=== PATIENT | male | born 1965 | race Caucasian/White ===

== ENCOUNTER 2016-05-15 10:38 | Emergency (ER) | payer OTHER ==
[2016-05-15] MEDS ORDERED: HYDROmorphone 1 MG/ML 1 ML SYRINGE IM STA (11:17)
--- NOTE | 2016-05-15 11:21 | ED ---
Back Pain [facility] - General Chief Complaint: Back Pain/Injury Stated Complaint: lower back pain Time Seen by Provider: 05/15/16 10:53 Source: patient, RN notes reviewed Limitations: no limitations - History of Present Illness Initial Comments: Patient is a 50-year-old male presents emergency room for evaluation of low back pain. Patient states his current history of chronic low back pain. Patient states he takes baclofen, morphine, Percocet, Mobic for his chronic back pain. Patient states he also sees Dr. Chan for injections. Patient states on Saturday he was lifting up a tool box and had increasing left-sided low back pain. Patient states the pain is not subsiding. Patient states he called Dr. Leahy's office today and was unable to get in. Patient states his pain medications are not helping his pain. Patient denies any numbness or tingling going down his extremities. Patient denies fecal or urinary incontinence. Patient denies saddle anesthesia. Patient states having 10 out of 10 pain that lasted subside. Patient denies any recent fall or trauma to his back. - Related Data Home Medications Medication Instructions Recorded Confirmed Amitriptyline HCl [Elavil] 25 mg PO BID 05/16/15 05/15/16 Baclofen 10 mg PO BID 05/16/15 05/15/16 Diazepam [Valium] 5 mg PO BID PRN 05/16/15 05/15/16 Gabapentin 800 mg PO TID 05/16/15 05/15/16 Meloxicam [Mobic] 7.5 mg PO DAILY 05/16/15 05/15/16 Morphine Sulfate [Morphine Sulfate 30 mg PO BID 05/16/15 05/15/16 ER] OXcarbazepine [Trileptal] 1,200 mg PO BID 05/16/15 05/15/16 PARoxetine HCL [Paxil] 40 mg PO DAILY 05/16/15 05/15/16 Ranitidine HCl 150 mg PO BID PRN 05/16/15 05/15/16 oxyCODONE-APAP 10-325MG [Percocet 1 tab PO BID 05/16/15 05/15/16 10-325 mg] levETIRAcetam [Keppra] 500 mg PO BID 05/15/16 05/15/16 Allergies Allergy/AdvReac Type Severity Reaction Status Date / Time coconut oil Allergy Dyspnea, Verified 05/15/16 10:44 SWELLING OF THROAT latex Allergy Rash/Hives Verified 05/15/16 10:44 Penicillins Allergy "TOLD BY Verified 05/15/16 10:44 DR LINDSEY TO TAKE Review of Systems ROS Statement: Those systems with pertinent positive or pertinent negative responses have been documented in the HPI. ROS Other: All systems not noted in ROS Statement are negative. Past Medical History Past Medical History: Seizure Disorder Additional Past Medical History / Comment(s): BACK PAIN History of Any Multi-Drug Resistant Organisms: None Reported Additional Past Surgical History / Comment(s): FOOT SURGERY, AND RIGHT ARTHROSCOPIC SURGERY Past Psychological History: Anxiety, Depression Smoking Status: Current every day smoker Past Alcohol Use History: None Reported Past Drug Use History: Marijuana General Exam Limitations: no limitations General appearance: alert Head exam: Present: atraumatic, normocephalic, normal inspection Eye exam: Present: normal appearance ENT exam: Present: normal exam Neck exam: Present: normal inspection Respiratory exam: Present: normal lung sounds bilaterally. Absent: respiratory distress Cardiovascular Exam: Present: regular rate, normal rhythm, normal heart sounds Back exam: Present: paraspinal tenderness (left lumbosacral tenderness) Neurological exam: Present: alert, oriented X3, CN II-XII intact, normal gait Psychiatric exam: Present: normal affect, normal mood Skin exam: Present: warm, dry, intact, normal color. Absent: rash Course Vital Signs 05/15/16 05/15/16 05/15/16 10:46 11:53 12:30 Temperature 97.8 F 98 F Pulse Rate 90 64 75 Respiratory 16 18 18 Rate Blood Pressure 133/83 109/57 109/58 O2 Sat by Pulse 97 100 95 Oximetry Medical Decision Making - Medical Decision Making Patient is a 50-year-old male presents emergency room for evaluation of acute on Chronic low back pain. Patient has no neural deficits. Patient given pain medication and advised follow-up with his neurologist. Patient states he understands everything that was discussed with him. Return parameters discussed. Case discussed with Dr. Cedeno. Disposition Clinical Impression: Acute exacerbation of chronic low back pain Disposition: HOME SELF-CARE Condition: Good Instructions: Chronic Back Pain (ED) Additional Instructions: Warm moist heat. Continue at home medications as needed. Please follow-up with primary care provider or scene painter for reevaluation in 24- 48 hours. If any new symptom arises, or symptoms worsen, return to ER as soon as possible. Referrals: Live Knutson MD [Primary Care Provider] - 1-2 days Time of Disposition: 11:50
[2016-05-15] MEDS ORDERED: HYDROmorphone 2 MG/ML 1 ML SYRINGE IM STA (11:52)
[2016-05-15 11:54] VITALS: RESP 18
[2016-05-15 12:32] VITALS: BP 109/58; PULSE 75; TEMP 98
== END 2016-05-15 12:32 | disposition home or self-care (01) ==
LOC: EC 10:38
DX: M54.5 Low back pain (principal); G89.29 Other chronic pain; X50.0XXA Overexertion from strenuous movement or load, initial encounter; G40.909 Epilepsy, unspecified, not intractable, without status epilepticus; F32.9 Major depressive disorder, single episode, unspecified; F41.9 Anxiety disorder, unspecified; F17.200 Nicotine dependence, unspecified, uncomplicated; Z79.1 Long term (current) use of non-steroidal anti-inflammatories (NSAID); Z79.899 Other long term (current) drug therapy; Z88.0 Allergy status to penicillin; Z91.040 Latex allergy status
CPT/HCPCS: 99283; 96372 ×2; J1170 ×2

== ENCOUNTER → 2017-07-12 | Outpatient (CLI) | payer OTHER ==
--- NOTE | 2017-07-13 08:37 | MR ---
EXAMINATION TYPE: MR lumbar spine wo con DATE OF EXAM: 07/12/2017 COMPARISON: Prior MRI lumbar spine August 27, 2015 HISTORY: Low back pain per order. Pain for over 40 years going into bilateral buttocks per patient. TECHNIQUE: Multiplanar, multisequence imaging of the lumbar spine is performed without IV contrast. FINDINGS: Sagittal images of the lumbar spine show vertebral body heights to appear stable and satisf actory. There is straightened alignment redemonstrated. There is multilevel disc desiccation with may rly advanced multilevel disc space narrowing redemonstrated. There are multilevel small posterior dis c herniations on sagittal images most prominent at L1-L2 level redemonstrated. The conus medullaris remains stable in position ending at roughly mid L2 level. No suspicious signal is seen. There is red emonstration of extensive heterogeneous endplate changes predominantly Modic type II changes with inc reased T1 and T2 signal. There is redemonstration of fairly moderate multilevel anterior spurring. Axial images at T12-L1 level redemonstrate mild facet degenerative changes bilaterally. Spinal canal is preserved. Bilateral neural foramina are patent. No significant change from prior study is seen. Axial images at L1-L2 level redemonstrate moderate broad disc bulge and mild facet degenerative muñiz es bilaterally. There is mild effacement of the anterior thecal sac. Bilateral neural foramina are pa tent. No significant change from prior study is seen. Axial images at L2-L3 level redemonstrate moderate broad disc bulge mildly effacing anterior thecal s ac, bilateral neural foramina are patent. No significant change from prior study is seen. Axial images at L3-L4 level show mild facet degenerative changes bilaterally and mild to moderate bro ad disc bulge mildly effacing anterior thecal sac. There is persistent mild bilateral neural foramina l narrowing. No significant change from prior study is identified. Axial images at L4-L5 level show mild to moderate facet degenerative changes and ligamentum flavum hy pertrophy with some effacement the posterior lateral thecal sac. There is moderate to severe broad di sc bulge effacing anterior thecal sac. There is moderate right and mild left-sided neural foraminal n arrowing at this level redemonstrated. No significant change from prior. Axial images at L5-S1 level redemonstrate mild to moderate facet degenerative changes bilaterally. Th ere is moderate broad disc bulge with central disc protrusion component redemonstrated. There is mild to moderate right greater than left bilateral neural foraminal narrowing again seen. No suspicious retroperitoneal findings are seen. IMPRESSION: Straightening of lumbar spine with multilevel degenerative changes redemonstrated quite p ronounced for patient's age but no significant change or progression from most recent prior MRI.
== END ==
LOC: RADMRIMAIN 15:56
PROVIDERS: ATTEND Psychiatry & Neurology Neurology
DX: M47.816 Spondylosis without myelopathy or radiculopathy, lumbar region (principal); Z88.0 Allergy status to penicillin; Z88.8 Allergy status to other drugs, medicaments and biological substances
CPT/HCPCS: 72148

== ENCOUNTER 2017-08-08 00:34 | Inpatient (IN) | payer OTHER ==
[2017-08-08] MEDS ORDERED: DIAZEPAM 5 MG/ML 2 ML INJ IVP STA (00:39)
[2017-08-08] MEDS ORDERED: ACETAMINOPHEN IV (For NPO) 1,000 MG in EMPTY BAG 1 BAG IVPB STA (00:46)
[2017-08-08] MEDS ORDERED: LORazepam 2 MG/ML INJ IV STA (00:46)
[2017-08-08] MEDS ORDERED: SODIUM CHLORIDE 0.9% 1,000 ML IV STA ×3 (00:50→01:59)
[2017-08-08] MEDS ORDERED: MORPHINE SULFATE 4MG/4ML SYRG IVP PRN (00:50)
[2017-08-08] MEDS ORDERED: SODIUM CHLORIDE 0.9% 500 ML IV STA ×2 (00:50→01:59)
[2017-08-08] MEDS ORDERED: MORPHINE SULFATE 4MG/4ML SYRG IVP STA (00:50)
[2017-08-08] MEDS ORDERED: ONDANSETRON 4 MG/2 ML VIAL IVP STA (01:05)
--- NOTE | 2017-08-08 01:08 | ED ---
General Adult HPI - General Chief complaint: Weakness Stated complaint: Neuro Deficit Time Seen by Provider: 08/08/17 00:35 Source: patient, EMS, RN notes reviewed, old records reviewed Mode of arrival: EMS Limitations: no limitations - History of Present Illness Initial comments: This is a 51-year-old male to the ER for evaluation today. Patient's brought in for evaluation regarding severe muscle spasm, inability to move different parts of his body at times.. Patient states he is very significant tightness in his arms, severe fever and sweating. Weakness. Cough and congestion. Patient states he takes multiple pain medications, - Related Data Home Medications Medication Instructions Recorded Confirmed Amitriptyline HCl [Elavil] 25 mg PO BID 05/16/15 05/15/16 Baclofen 10 mg PO BID 05/16/15 05/15/16 Diazepam [Valium] 5 mg PO BID PRN 05/16/15 05/15/16 Gabapentin 800 mg PO TID 05/16/15 05/15/16 Meloxicam [Mobic] 7.5 mg PO DAILY 05/16/15 05/15/16 Morphine Sulfate [Morphine Sulfate 30 mg PO BID 05/16/15 05/15/16 ER] OXcarbazepine [Trileptal] 1,200 mg PO BID 05/16/15 05/15/16 PARoxetine HCL [Paxil] 40 mg PO DAILY 05/16/15 05/15/16 Ranitidine HCl 150 mg PO BID PRN 05/16/15 05/15/16 oxyCODONE-APAP 10-325MG [Percocet 1 tab PO BID 05/16/15 05/15/16 10-325 mg] levETIRAcetam [Keppra] 500 mg PO BID 05/15/16 05/15/16 Allergies Allergy/AdvReac Type Severity Reaction Status Date / Time coconut oil Allergy Dyspnea, Verified 08/08/17 00:36 SWELLING OF THROAT latex Allergy Rash/Hives Verified 08/08/17 00:36 Penicillins Allergy "TOLD BY Verified 08/08/17 00:36 DR LINDSEY TO TAKE Review of Systems ROS Statement: Those systems with pertinent positive or pertinent negative responses have been documented in the HPI. ROS Other: All systems not noted in ROS Statement are negative. Past Medical History Past Medical History: Seizure Disorder Additional Past Medical History / Comment(s): BACK PAIN History of Any Multi-Drug Resistant Organisms: None Reported Additional Past Surgical History / Comment(s): FOOT SURGERY, AND RIGHT ARTHROSCOPIC SURGERY Past Psychological History: Anxiety, Depression Smoking Status: Current every day smoker Past Alcohol Use History: None Reported Past Drug Use History: Marijuana General Exam Limitations: altered mental status General appearance: alert, anxious, in distress Head exam: Present: atraumatic, normocephalic, normal inspection Eye exam: Present: normal appearance, PERRL, EOMI. Absent: scleral icterus, conjunctival injection, periorbital swelling ENT exam: Present: normal exam, mucous membranes moist Neck exam: Present: normal inspection. Absent: tenderness, meningismus, lymphadenopathy Respiratory exam: Present: normal lung sounds bilaterally. Absent: respiratory distress, wheezes, rales, rhonchi, stridor Cardiovascular Exam: Present: regular rate, bradycardia, normal heart sounds. Absent: systolic murmur, diastolic murmur, rubs, gallop, clicks GI/Abdominal exam: Present: soft, normal bowel sounds. Absent: distended, tenderness, guarding, rebound, rigid Extremities exam: Present: normal inspection, full ROM, normal capillary refill. Absent: tenderness, pedal edema, joint swelling, calf tenderness Back exam: Present: normal inspection Neurological exam: Present: alert, oriented X3, CN II-XII intact Psychiatric exam: Present: normal affect, normal mood Skin exam: Present: warm, dry, intact, normal color. Absent: rash Course Vital Signs 08/08/17 08/08/17 08/08/17 00:36 01:16 01:52 Temperature 103.9 F H 102.7 F H 100.2 F H Pulse Rate 150 H 125 H 119 H Pulse Rate [ Right] Respiratory 20 20 16 Rate Blood Pressure 160/90 141/74 112/63 O2 Sat by Pulse 95 95 96 Oximetry 08/08/17 08/08/17 02:56 03:28 Temperature 99.3 F Pulse Rate 109 H Pulse Rate [ 103 H Right] Respiratory 14 16 Rate Blood Pressure 123/73 O2 Sat by Pulse 96 Oximetry - Reevaluation(s) Reevaluation #1: 08/08/17 03:47 Patient is awake alert sitting up in bed talking EKG Findings - EKG Comments: EKG Findings:: EKG shows sinus tachycardia rate 146, [place] 100, QRS 76, QTc 523 Medical Decision Making - Medical Decision Making Patient return to baseline mental status, has active adequate fever control, heart rate is much improved at this time, patient will be started on broad- spectrum antibiotics, x-ray CT brain negative fluids negative urine is negative for significant infection. Patient has blood cultures drawn. We'll continue to monitor for hemodynamic status - Lab Data Result diagrams: 08/08/17 00:57 08/08/17 00:57 Lab Results 08/08/17 08/08/17 08/08/17 Range/Units 00:57 00:57 00:57 WBC 25.2 H* (3.8-10.6) k/uL RBC 5.60 (4.30-5.90) m/uL Hgb 17.1 (13.0-17.5) gm/dL Hct 48.8 (39.0-53.0) % MCV 87.1 (80.0-100.0) fL MCH 30.6 (25.0-35.0) pg MCHC 35.1 (31.0-37.0) g/dL RDW 12.9 (11.5-15.5) % Plt Count 394 (150-450) k/uL Neutrophils % 88 % Lymphocytes % 4 % Monocytes % 7 % Eosinophils % 0 % Basophils % 0 % Neutrophils # 22.1 H (1.3-7.7) k/uL Lymphocytes # 1.0 (1.0-4.8) k/uL Monocytes # 1.8 H (0-1.0) k/uL Eosinophils # 0.1 (0-0.7) k/uL Basophils # 0.0 (0-0.2) k/uL PT (9.0-12.0) sec INR (<1.2) APTT (22.0-30.0) sec Sodium 144 (137-145) mmol/L Potassium 4.0 (3.5-5.1) mmol/L Chloride 71 L* (98-107) mmol/L Carbon Dioxide 38 H (22-30) mmol/L Anion Gap 35 mmol/L BUN 44 H (9-20) mg/dL Creatinine 3.20 H (0.66-1.25) mg/dL Est GFR (CKD-EPI)AfAm 24 (>60 ml/min/1.73 sqM) Est GFR (CKD-EPI)NonAf 21 (>60 ml/min/1.73 sqM) Glucose 163 H (74-99) mg/dL Plasma Lactic Acid Adrian (0.7-2.0) mmol/L Calcium 10.3 H (8.4-10.2) mg/dL Phosphorus 6.6 H (2.5-4.5) mg/dL Magnesium 2.0 (1.6-2.3) mg/dL Total Bilirubin 0.6 (0.2-1.3) mg/dL AST 52 (17-59) U/L ALT 22 (21-72) U/L Alkaline Phosphatase 134 H (38-126) U/L Ammonia (<30) umol/L Total Creatine Kinase 668 H (55-170) U/L CK-MB (CK-2) 2.9 H* (0.0-2.4) ng/mL CK-MB (CK-2) Rel Index 0.4 Troponin I 0.021 (0.000-0.034) ng/mL Total Protein 9.3 H (6.3-8.2) g/dL Albumin 5.6 H (3.5-5.0) g/dL Lipase (23-300) U/L Urine Color Urine Appearance (Clear) Urine pH (5.0-8.0) Ur Specific [place] (1.001-1.035) Urine Protein (Negative) Urine Glucose (UA) (Negative) Urine Ketones (Negative) Urine Blood (Negative) Urine Nitrite (Negative) Urine Bilirubin (Negative) Urine Urobilinogen (<2.0) mg/dL Ur Leukocyte Esterase (Negative) Urine RBC (0-5) /hpf Urine WBC (0-5) /hpf Urine Bacteria (None) /hpf Hyaline Casts (0-2) /lpf Urine Mucus (None) /hpf Salicylates mg/dL Urine Opiates Screen (NotDetected) Ur Oxycodone Screen (NotDetected) Urine Methadone Screen (NotDetected) Ur Propoxyphene Screen (NotDetected) Acetaminophen ug/mL Ur Barbiturates Screen (NotDetected) U Tricyclic Antidepress (NotDetected) Ur Phencyclidine Scrn (NotDetected) Ur Amphetamines Screen (NotDetected) U Methamphetamines Scrn (NotDetected) U Benzodiazepines Scrn (NotDetected) Urine Cocaine Screen (NotDetected) U Marijuana (THC) Screen (NotDetected) Serum Alcohol <10 mg/dL 08/08/17 08/08/17 08/08/17 Range/Units 00:57 00:57 00:57 WBC (3.8-10.6) k/uL RBC (4.30-5.90) m/uL Hgb (13.0-17.5) gm/dL Hct (39.0-53.0) % MCV (80.0-100.0) fL MCH (25.0-35.0) pg MCHC (31.0-37.0) g/dL RDW (11.5-15.5) % Plt Count (150-450) k/uL Neutrophils % % Lymphocytes % % Monocytes % % Eosinophils % % Basophils % % Neutrophils # (1.3-7.7) k/uL Lymphocytes # (1.0-4.8) k/uL Monocytes # (0-1.0) k/uL Eosinophils # (0-0.7) k/uL Basophils # (0-0.2) k/uL PT 10.7 (9.0-12.0) sec INR 1.1 (<1.2) APTT 22.4 (22.0-30.0) sec Sodium (137-145) mmol/L Potassium (3.5-5.1) mmol/L Chloride (98-107) mmol/L Carbon Dioxide (22-30) mmol/L Anion Gap mmol/L BUN (9-20) mg/dL Creatinine (0.66-1.25) mg/dL Est GFR (CKD-EPI)AfAm (>60 ml/min/1.73 sqM) Est GFR (CKD-EPI)NonAf (>60 ml/min/1.73 sqM) Glucose (74-99) mg/dL Plasma Lactic Acid Adrian 11.3 H* (0.7-2.0) mmol/L Calcium (8.4-10.2) mg/dL Phosphorus (2.5-4.5) mg/dL Magnesium (1.6-2.3) mg/dL Total Bilirubin (0.2-1.3) mg/dL AST (17-59) U/L ALT (21-72) U/L Alkaline Phosphatase (38-126) U/L Ammonia (<30) umol/L Total Creatine Kinase (55-170) U/L CK-MB (CK-2) (0.0-2.4) ng/mL CK-MB (CK-2) Rel Index Troponin I (0.000-0.034) ng/mL Total Protein (6.3-8.2) g/dL Albumin (3.5-5.0) g/dL Lipase 42 (23-300) U/L Urine Color Urine Appearance (Clear) Urine pH (5.0-8.0) Ur Specific [place] (1.001-1.035) Urine Protein (Negative) Urine Glucose (UA) (Negative) Urine Ketones (Negative) Urine Blood (Negative) Urine Nitrite (Negative) Urine Bilirubin (Negative) Urine Urobilinogen (<2.0) mg/dL Ur Leukocyte Esterase (Negative) Urine RBC (0-5) /hpf Urine WBC (0-5) /hpf Urine Bacteria (None) /hpf Hyaline Casts (0-2) /lpf Urine Mucus (None) /hpf Salicylates <1.0 mg/dL Urine Opiates Screen (NotDetected) Ur Oxycodone Screen (NotDetected) Urine Methadone Screen (NotDetected) Ur Propoxyphene Screen (NotDetected) Acetaminophen <10.0 ug/mL Ur Barbiturates Screen (NotDetected) U Tricyclic Antidepress (NotDetected) Ur Phencyclidine Scrn (NotDetected) Ur Amphetamines Screen (NotDetected) U Methamphetamines Scrn (NotDetected) U Benzodiazepines Scrn (NotDetected) Urine Cocaine Screen (NotDetected) U Marijuana (THC) Screen (NotDetected) Serum Alcohol mg/dL 08/08/17 08/08/17 Range/Units 00:57 01:12 WBC (3.8-10.6) k/uL RBC (4.30-5.90) m/uL Hgb (13.0-17.5) gm/dL Hct (39.0-53.0) % MCV (80.0-100.0) fL MCH (25.0-35.0) pg MCHC (31.0-37.0) g/dL RDW (11.5-15.5) % Plt Count (150-450) k/uL Neutrophils % % Lymphocytes % % Monocytes % % Eosinophils % % Basophils % % Neutrophils # (1.3-7.7) k/uL Lymphocytes # (1.0-4.8) k/uL Monocytes # (0-1.0) k/uL Eosinophils # (0-0.7) k/uL Basophils # (0-0.2) k/uL PT (9.0-12.0) sec INR (<1.2) APTT (22.0-30.0) sec Sodium (137-145) mmol/L Potassium (3.5-5.1) mmol/L Chloride (98-107) mmol/L Carbon Dioxide (22-30) mmol/L Anion Gap mmol/L BUN (9-20) mg/dL Creatinine (0.66-1.25) mg/dL Est GFR (CKD-EPI)AfAm (>60 ml/min/1.73 sqM) Est GFR (CKD-EPI)NonAf (>60 ml/min/1.73 sqM) Glucose (74-99) mg/dL Plasma Lactic Acid Adrian (0.7-2.0) mmol/L Calcium (8.4-10.2) mg/dL Phosphorus (2.5-4.5) mg/dL Magnesium (1.6-2.3) mg/dL Total Bilirubin (0.2-1.3) mg/dL AST (17-59) U/L ALT (21-72) U/L Alkaline Phosphatase (38-126) U/L Ammonia 45 H (<30) umol/L Total Creatine Kinase (55-170) U/L CK-MB (CK-2) (0.0-2.4) ng/mL CK-MB (CK-2) Rel Index Troponin I (0.000-0.034) ng/mL Total Protein (6.3-8.2) g/dL Albumin (3.5-5.0) g/dL Lipase (23-300) U/L Urine Color Yellow Urine Appearance Turbid (Clear) Urine pH 5.5 (5.0-8.0) Ur Specific [place] 1.019 (1.001-1.035) Urine Protein 2+ H (Negative) Urine Glucose (UA) Trace H (Negative) Urine Ketones 1+ H (Negative) Urine Blood Moderate H (Negative) Urine Nitrite Negative (Negative) Urine Bilirubin Negative (Negative) Urine Urobilinogen 2.0 (<2.0) mg/dL Ur Leukocyte Esterase Moderate H (Negative) Urine RBC 5 (0-5) /hpf Urine WBC 22 H (0-5) /hpf Urine Bacteria Few H (None) /hpf Hyaline Casts 55 H (0-2) /lpf Urine Mucus Rare H (None) /hpf Salicylates mg/dL Urine Opiates Screen Detected H (NotDetected) Ur Oxycodone Screen Not Detected (NotDetected) Urine Methadone Screen Not Detected (NotDetected) Ur Propoxyphene Screen Not Detected (NotDetected) Acetaminophen ug/mL Ur Barbiturates Screen Not Detected (NotDetected) U Tricyclic Antidepress Detected H (NotDetected) Ur Phencyclidine Scrn Not Detected (NotDetected) Ur Amphetamines Screen Not Detected (NotDetected) U Methamphetamines Scrn Not Detected (NotDetected) U Benzodiazepines Scrn Not Detected (NotDetected) Urine Cocaine Screen Not Detected (NotDetected) U Marijuana (THC) Screen Detected H (NotDetected) Serum Alcohol mg/dL - Radiology Data Radiology results: report reviewed (CT brain negative chest x-ray negative), image reviewed Disposition Clinical Impression: Dehydration, ARF (acute renal failure), Fever, Leukocytosis, Recurrent seizures Disposition: ADMITTED IP TO THIS [facility] Condition: Serious Referrals: Live Knutson MD [Primary Care Provider] - 1-2 days
[2017-08-08 01:10] LABS: Basophils % (A) 0 %; Eosinophils # (A) 0.1 k/uL (0-0.7); Eosinophils % (A) 0 %; HCT 48.8 % (39.0-53.0); HGB 17.1 gm/dL (13.0-17.5); Lymphocytes % (A) 4 %; MCH 30.6 pg (25.0-35.0); MCHC 35.1 g/dL (31.0-37.0); MCV 87.1 fL (80.0-100.0); Mean Platelet Volume 6.4; Monocytes # (A) 1.8 k/uL (0-1.0); Monocytes % (A) 7 %; Neutrophils # (A) 22.1 k/uL (1.3-7.7); Neutrophils % (A) 88 %; Platelet Count 394 k/uL (150-450); RDW 12.9 % (11.5-15.5)
[2017-08-08 01:12] LABS: WBC 25.2 k/uL (3.8-10.6)
[2017-08-08 01:16] LABS: INR 1.1 (<1.2); Partial Thromboplastin Time 22.4 sec (22.0-30.0); Prothrombin Time 10.7 sec (9.0-12.0)
[2017-08-08 01:20] LABS: ALT 22 U/L (21-72); Albumin 5.6 g/dL (3.5-5.0); Alcohol <10 mg/dL; Alkaline Phosphatase 134 U/L (38-126); Blood Urea Nitrogen 44 mg/dL (9-20); Calcium 10.3 mg/dL (8.4-10.2); Glucose 163 mg/dL (74-99); Phosphorus 6.6 mg/dL (2.5-4.5); Sodium 144 mmol/L (137-145); Total Bilirubin 0.6 mg/dL (0.2-1.3); Total Protein 9.3 g/dL (6.3-8.2)
[2017-08-08 01:27] LABS: Anion Gap 35 mmol/L
[2017-08-08 01:29] LABS: Chloride 71 mmol/L (98-107)
[2017-08-08 01:30] LABS: AST 52 U/L (17-59); Carbon Dioxide 38 mmol/L (22-30)
[2017-08-08 01:31] LABS: Appearance,Urine Turbid (Clear); Bacteria,Urine Few /hpf; Bilirubin,Urine Negative (Negative); Blood,Urine Moderate (Negative); Color,Urine Yellow; Glucose,Urine (UA) Trace (Negative); Hyaline Casts,Urine 55 /lpf (0-2); Ketones,Urine 1+ (Negative); Leukocyte Esterase,Urine Moderate (Negative); Mucus,Urine Rare /hpf; Nitrite,Urine Negative (Negative); PH, Urine 5.5 (5.0-8.0); Protein,Urine 2+ (Negative); RBC,Urine 5 /hpf (0-5); Specific Gravity,Urine 1.019 (1.001-1.035); WBC,Urine 22 /hpf (0-5)
--- NOTE | 2017-08-08 01:37 | XR ---
EXAMINATION TYPE: XR chest 1V portable DATE OF EXAM: 08/08/2017 COMPARISON: 05/21/2014 HISTORY: Chest pain TECHNIQUE: Single frontal view of the chest is obtained. FINDINGS: Heart and mediastinum are normal. Lungs are clear of infiltrate. There are small linear de nsity in the right midlung. Diaphragm is normal. Bony thorax appears normal. There are chest leads. IMPRESSION: Subsegmental atelectasis in the right midlung otherwise negative exam.
[2017-08-08 01:38] LABS: Amphetamine Screen,Urine Not Detected (NotDetected); Barbiturate Screen,Urine Not Detected (NotDetected); Benzodiazepines Screen,Urine Not Detected (NotDetected); Cocaine Screen,Urine Not Detected (NotDetected); Methadone Screen, Urine Not Detected (NotDetected); Opiate Screen,Urine Detected (NotDetected); Oxycodone Screen, Urine Not Detected (NotDetected); Phencyclidine Screen,Urine Not Detected (NotDetected); Tricyclic Antidepressant,Urine Detected (NotDetected); Urn Cannabinoid Scrn Detected (NotDetected)
[2017-08-08 01:52] LABS: Acetaminophen <10.0 ug/mL; Lipase 42 U/L (23-300); Salicylate <1.0 mg/dL
[2017-08-08 01:55] LABS: Troponin I 0.021 ng/mL (0.000-0.034)
[2017-08-08 02:01] LABS: Creatine Kinase MB 2.9 ng/mL (0.0-2.4)
--- NOTE | 2017-08-08 02:03 | CT ---
EXAMINATION TYPE: CT brain wo con DATE OF EXAM: 08/08/2017 COMPARISON: 05/25/2005 HISTORY: AMS CT DLP: 2028.80 mGycm Automated exposure control for dose reduction was used. FINDINGS: Ventricles have normal size. There is no mass effect or midline shift. There is no sign of intracrani al hemorrhage. The calvarium is intact. IMPRESSION: NEGATIVE CT SCAN OF THE BRAIN. NO ADVERSE CHANGE COMPARED TO OLD EXAM.
[2017-08-08 03:38] LABS: Basophils % (A) 0 %; Eosinophils # (A) 0.2 k/uL (0-0.7); Eosinophils % (A) 1 %; HCT 43.6 % (39.0-53.0); HGB 14.8 gm/dL (13.0-17.5); Lymphocytes # (A) 0.7 k/uL (1.0-4.8); Lymphocytes % (A) 3 %; MCH 29.6 pg (25.0-35.0); MCHC 33.9 g/dL (31.0-37.0); MCV 87.1 fL (80.0-100.0); Mean Platelet Volume 6.5; Monocytes # (A) 1.4 k/uL (0-1.0); Monocytes % (A) 6 %; Neutrophils # (A) 20.3 k/uL (1.3-7.7); Neutrophils % (A) 90 %; Platelet Count 266 k/uL (150-450); RDW 13.1 % (11.5-15.5); WBC 22.7 k/uL (3.8-10.6)
[2017-08-08] MEDS ORDERED: cefTRIAXone IN SWFI 1,000 MG/10 ML SYRINGE IVP STA (03:46)
[2017-08-08 03:52] LABS: Calcium 8.7 mg/dL (8.4-10.2); Total Bilirubin 0.7 mg/dL (0.2-1.3)
[2017-08-08 04:10] LABS: Magnesium 2.1 mg/dL (1.6-2.3); Phosphorus 7.3 mg/dL (2.5-4.5); Potassium 3.7 mmol/L (3.5-5.1)
[2017-08-08 04:11] LABS: Albumin 4.4 g/dL (3.5-5.0); Total Protein 7.7 g/dL (6.3-8.2)
[2017-08-08] MEDS: LACTATED RINGERS 1,000 ML IV SCH ×4 (05:16→20:43)
--- NOTE | 2017-08-08 10:32 | P.NPCON ---
History of Present Illness - Reason for Consult acute renal failure - History of Present Illness Reason for consultation: Acute kidney injury History of present illness: Patient is a 51-year-old male seen in consultation for acute kidney injury. His creatinine on admission was 3.2 last night and is down to 2.2 this morning. Patient presented to the hospital with muscle spasms in his lower extremities. Patient also states he's been having persistent nausea and vomiting for the last 3 days. States he's been having about 20-30 episodes of emesis daily. He's not able to keep anything down. He denies using NSAIDs. Patient did receive 3 L of IV fluid on admission. I don't see any documented hypotension. Patient's lactic acid level was elevated at 11.3 and is down to 2.0. Additionally he was hyper calcemic and alkalotic which also improved with IV hydration. Patient does admit to dysuria for the last 2-3 days. He denies any prior history of kidney disease. His creatinine in 2016 was 0.68. He denies any family history of renal disease. He was noted to be febrile with a temperature of 103.9 on admission. He is also noted to be tachycardic. His bicarbonate was 25.2 and is down to 22.7. He denies any hematuria. Vital signs are stable. General: The patient appeared well nourished and normally developed. HEENT: Head exam is unremarkable. Neck is without jugular venous distension. LUNGS: Lungs are clear to auscultation and percussion. Breath sounds decreased. HEART: Rate and Rhythm are regular. First and second heart sounds normal. No murmurs, rubs or gallops. ABDOMEN: Abdominal exam reveals normal bowel sounds. Non-tender and non- distended. No evidence of peritonitis. EXTREMITITES: No clubbing, cyanosis, or edema. Past Medical History Past Medical History: Seizure Disorder Additional Past Medical History / Comment(s): BACK PAIN History of Any Multi-Drug Resistant Organisms: None Reported Additional Past Surgical History / Comment(s): FOOT SURGERY, AND RIGHT ARTHROSCOPIC SURGERY Past Psychological History: Anxiety, Depression Smoking Status: Current every day smoker Past Alcohol Use History: None Reported Past Drug Use History: Marijuana Medications and Allergies Home Medications Medication Instructions Recorded Confirmed Type Amitriptyline HCl [Elavil] 25 mg PO TID 05/16/15 08/08/17 History Baclofen 10 mg PO BID 05/16/15 08/08/17 History Gabapentin 800 mg PO Q4H 05/16/15 08/08/17 History PARoxetine HCL [Paxil] 40 mg PO DAILY 05/16/15 08/08/17 History Ranitidine HCl 150 mg PO BID PRN 05/16/15 08/08/17 History oxyCODONE-APAP 10-325MG [Percocet 1 tab PO TID PRN 05/16/15 08/08/17 History 10-325 mg] levETIRAcetam [Keppra] 500 mg PO BID 05/15/16 08/08/17 History Morphine Sulfate ER [Ms Contin 15 mg PO Q12HR PRN 08/08/17 08/08/17 History 15Mg] OXcarbazepine [Trileptal] 1,200 mg PO HS 08/08/17 08/08/17 History OXcarbazepine [Trileptal] 600 mg PO DAILY 08/08/17 08/08/17 History Allergies Allergy/AdvReac Type Severity Reaction Status Date / Time coconut oil Allergy Dyspnea, Verified 08/08/17 07:36 SWELLING OF THROAT latex Allergy Rash/Hives Verified 08/08/17 07:36 Penicillins Allergy "TOLD BY Verified 08/08/17 07:36 DR LINDSEY TO TAKE Physical Exam Vitals: Vital Signs Temp Pulse Pulse Resp BP Pulse Ox 08/08/17 08:20 88 17 116/70 96 08/08/17 06:53 97.6 F 94 16 112/68 97 08/08/17 05:12 98.7 F 98 14 125/65 94 L 08/08/17 04:35 100 16 130/78 96 08/08/17 03:28 103 H 16 08/08/17 02:56 99.3 F 109 H 14 123/73 96 08/08/17 01:52 100.2 F H 119 H 16 112/63 96 08/08/17 01:16 102.7 F H 125 H 20 141/74 95 08/08/17 00:36 103.9 F H 150 H 20 160/90 95 Intake and Output 08/07/17 08/08/17 08/08/17 22:59 06:59 14:59 Output Total 500 Balance -500 Output: Urine 500 Straight 500 Other: Weight 100.698 kg Results - Lab Results Most recent lab results Calcium 8.7 mg/dL (8.4-10.2) 08/08/17 03:20 Phosphorus 7.3 mg/dL (2.5-4.5) H 08/08/17 03:20 Magnesium 2.1 mg/dL (1.6-2.3) 08/08/17 03:20 08/08/17 03:20 08/08/17 03:20 Assessment and Plan Plan: Assessment: #1. Nonoliguric acute kidney injury mostly prerenal secondary to intravascular volume depletion secondary to nausea and vomiting. Creatinine was 3.2 and is down to 2.2 today. Baseline creatinine is 1. #2. Severe sepsis possibly due to UTI. Abdominal source also for consideration due to persistent nausea and vomiting. #3. Muscle spasms likely related to high-dose baclofen in the setting of acute kidney injury. #4. Metabolic alkalosis secondary to severe volume contraction. #5. Lactic acidosis secondary to hypoperfusion improved with IV hydration. Plan: Continue with LR at 100 mL an hour. Follow-up cultures. Antibiotics per infectious disease recommendations. Avoid vancomycin if possible. Dose to be adjusted for renal function. Continue to monitor renal function and urine output. Repeat electrolytes in the morning. No urgent need for renal replacement therapy at this time. Thank you for the consultation. I will continue to follow the patient with you during his hospital stay.
[2017-08-08] MEDS ORDERED: oxyCODONE-APAP 10-325MG 1 EACH TAB PO PRN (10:46)
--- NOTE | 2017-08-08 10:52 | P.CONS ---
History of Present Illness - Reason for Consult Consult date: 08/08/17 Sepsis - History of Present Illness This is a 51-year-old male patient gives history that he had a pain pump placed last month. On Saturday he had saline removed, oracio removed and the pump was filled. After that he developed nausea and vomiting which is been going on for 3 days and he has not been able to keep anything down since Saturday. He states he is vomiting up to 20 times per day. He denies any abdominal pain or diarrhea. He also complains of his legs collapsed on him and he could not hold any weight and he also could not move. He could not dress himself. And up calling EMS and was brought into [facility] emergency center for evaluation where he was found to have a BUN 44, creatinine 3.2, lactic acid 11.3, white count of 25.2, tachycardia of 150 and temperature 103.9. Patient was placed on the sepsis protocol and was given 3 L of IV fluid. He states he has been urinating okay without any difficulty but he has had burning for the past 2 days in further questioning patient states he also has nocturia and difficulty initiating urinary flow. Regarding pain, patient states he has significant tailbone pain that initially started from a fall from a tree as a child and only has worsened over the years. Patient's pain management doctor is Dr. Chan. Patient was started on ceftriaxone, blood culture and urine culture obtained. Chest x-ray is showing atelectasis. Urinalysis was turbid, blood moderate, leukocytes moderate, wbc's 22, bacteria few, nitrates negative. Urine drug screen was positive for tricyclic antidepressants and opiates and marijuana. Alcohol acetaminophen and salicylate level was within normal limits. CK 668, ammonia level XLV. Review of Systems All systems: negative Constitutional: Reports anorexia, Reports fatigue, Reports poor appetite, Reports weakness, Denies chills, Denies fever Eyes: denies blurred vision, denies pain Ears, nose, mouth and throat: Denies dental pain, Denies headache, Denies mouth pain, Denies sore throat Cardiovascular: Denies chest pain, Denies decreased exercise tolerance, Denies dyspnea on exertion, Denies edema, Denies leg edema, Denies lightheadedness, Denies shortness of breath, Denies syncope Respiratory: Reports cough, Denies dyspnea, Denies excessive sputum, Denies hemoptysis, Denies home oxygen, Denies wheezing Gastrointestinal: Reports loss of appetite, Reports nausea, Reports vomiting, Denies abdominal pain, Denies diarrhea Genitourinary: Reports dysuria, Reports urinary hesitancy, Reports urinary retention Musculoskeletal: Reports frequent falls, Reports gait dysfunction, Reports muscle weakness, Reports myalgias Integumentary: Denies pruritus, Denies rash Neurological: Reports gait dysfunction, Reports weakness, Denies numbness Psychiatric: Denies anxiety, Denies depression Endocrine: Denies fatigue, Denies weight change Past Medical History Past Medical History: Seizure Disorder Additional Past Medical History / Comment(s): BACK PAIN History of Any Multi-Drug Resistant Organisms: None Reported Additional Past Surgical History / Comment(s): FOOT SURGERY, AND RIGHT ARTHROSCOPIC SURGERY Past Psychological History: Anxiety, Depression Smoking Status: Current every day smoker Past Alcohol Use History: None Reported Additional Past Alcohol Use History / Comment(s): The patient is a smoker one pack per day for 40 years. He smokes marijuana on a regular basis. He does not have a medical marijuana card. He denies any other street drug use. He denies alcohol use. He lives with a friend named Parag. 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 Past Drug Use History: Marijuana Medications and Allergies Home Medications Medication Instructions Recorded Confirmed Type Amitriptyline HCl [Elavil] 25 mg PO TID 05/16/15 08/08/17 History Baclofen 10 mg PO BID 05/16/15 08/08/17 History Gabapentin 800 mg PO Q4H 05/16/15 08/08/17 History PARoxetine HCL [Paxil] 40 mg PO DAILY 05/16/15 08/08/17 History Ranitidine HCl 150 mg PO BID PRN 05/16/15 08/08/17 History oxyCODONE-APAP 10-325MG [Percocet 1 tab PO TID PRN 05/16/15 08/08/17 History 10-325 mg] levETIRAcetam [Keppra] 500 mg PO BID 05/15/16 08/08/17 History Morphine Sulfate ER [Ms Contin 15 mg PO Q12HR PRN 08/08/17 08/08/17 History 15Mg] OXcarbazepine [Trileptal] 1,200 mg PO HS 08/08/17 08/08/17 History OXcarbazepine [Trileptal] 600 mg PO DAILY 08/08/17 08/08/17 History Allergies Allergy/AdvReac Type Severity Reaction Status Date / Time coconut oil Allergy Dyspnea, Verified 08/08/17 07:36 SWELLING OF THROAT latex Allergy Rash/Hives Verified 08/08/17 07:36 Penicillins Allergy "TOLD BY Verified 08/08/17 07:36 DR LINDSEY TO TAKE Physical Exam Vitals: Vital Signs Temp Pulse Pulse Resp BP Pulse Ox 08/08/17 08:20 88 17 116/70 96 08/08/17 06:53 97.6 F 94 16 112/68 97 08/08/17 05:12 98.7 F 98 14 125/65 94 L 08/08/17 04:35 100 16 130/78 96 08/08/17 03:28 103 H 16 08/08/17 02:56 99.3 F 109 H 14 123/73 96 08/08/17 01:52 100.2 F H 119 H 16 112/63 96 08/08/17 01:16 102.7 F H 125 H 20 141/74 95 08/08/17 00:36 103.9 F H 150 H 20 160/90 95 Intake and Output 08/07/17 08/08/17 08/08/17 22:59 06:59 14:59 Output Total 500 Balance -500 Output: Urine 500 Straight 500 Other: Weight 100.698 kg Gen: This is an unkempt 51-year-old male patient on the ER stretcher. He appears to be comfortable and in no acute distress. HEENT: Head is atraumatic, normocephalic. Pupils equal, round. Sclerae is anicteric. Conjunctiva pink. Mucous members of the mouth are moist. Patient is edentulous on the top and lower teeth are in poor order. NECK: Supple. No JVD. No lymphadenopathy. No thyromegaly. LUNGS: Clear to auscultation. No wheezes or rhonchi. No intercostal retractions. HEART: Regular rate and rhythm. No murmur. ABDOMEN: Soft. Bowel sounds are present. No masses. No tenderness. EXTREMITIES: No pedal edema. No calf tenderness. Dorsalis pedis +2 bilaterally. NEUROLOGICAL: Patient is awake, alert and oriented x3. Cranial nerves 2 through 12 are grossly intact. Results Results: Laboratory Results WBC 22.7 k/uL (3.8-10.6) H 08/08/17 03:20 RBC 5.00 m/uL (4.30-5.90) 08/08/17 03:20 Hgb 14.8 gm/dL (13.0-17.5) 08/08/17 03:20 Hct 43.6 % (39.0-53.0) 08/08/17 03:20 MCV 87.1 fL (80.0-100.0) 08/08/17 03:20 MCH 29.6 pg (25.0-35.0) 08/08/17 03:20 MCHC 33.9 g/dL (31.0-37.0) 08/08/17 03:20 RDW 13.1 % (11.5-15.5) 08/08/17 03:20 Plt Count 266 k/uL (150-450) 08/08/17 03:20 Neutrophils % 90 % 08/08/17 03:20 Lymphocytes % 3 % 08/08/17 03:20 Monocytes % 6 % 08/08/17 03:20 Eosinophils % 1 % 08/08/17 03:20 Basophils % 0 % 08/08/17 03:20 Neutrophils # 20.3 k/uL (1.3-7.7) H 08/08/17 03:20 Lymphocytes # 0.7 k/uL (1.0-4.8) L 08/08/17 03:20 Monocytes # 1.4 k/uL (0-1.0) H 08/08/17 03:20 Eosinophils # 0.2 k/uL (0-0.7) 08/08/17 03:20 Basophils # 0.0 k/uL (0-0.2) 08/08/17 03:20 PT 10.7 sec (9.0-12.0) 08/08/17 00:57 INR 1.1 (<1.2) 08/08/17 00:57 APTT 22.4 sec (22.0-30.0) 08/08/17 00:57 Sodium 142 mmol/L (137-145) 08/08/17 03:20 Potassium 3.7 mmol/L (3.5-5.1) 08/08/17 03:20 Chloride 81 mmol/L (98-107) L 08/08/17 03:20 Carbon Dioxide 44 mmol/L (22-30) H* 08/08/17 03:20 Anion Gap 17 mmol/L 08/08/17 03:20 BUN 49 mg/dL (9-20) H 08/08/17 03:20 Creatinine 2.20 mg/dL (0.66-1.25) H 08/08/17 03:20 Est GFR (CKD-EPI)AfAm 38 (>60 ml/min/1.73 sqM) 08/08/17 03:20 Est GFR (CKD-EPI)NonAf 33 (>60 ml/min/1.73 sqM) 08/08/17 03:20 Glucose 127 mg/dL (74-99) H 08/08/17 03:20 Lactic Ac Sepsis Rflx Y 08/08/17 01:31 Plasma Lactic Acid Adrian 2.0 mmol/L (0.7-2.0) 08/08/17 03:20 Calcium 8.7 mg/dL (8.4-10.2) 08/08/17 03:20 Phosphorus 7.3 mg/dL (2.5-4.5) H 08/08/17 03:20 Magnesium 2.1 mg/dL (1.6-2.3) 08/08/17 03:20 Total Bilirubin 0.7 mg/dL (0.2-1.3) 08/08/17 03:20 AST 58 U/L (17-59) 08/08/17 03:20 ALT 22 U/L (21-72) 08/08/17 03:20 Alkaline Phosphatase 91 U/L (38-126) 08/08/17 03:20 Ammonia 45 umol/L (<30) H 08/08/17 00:57 Total Creatine Kinase 668 U/L (55-170) H 08/08/17 00:57 CK-MB (CK-2) 2.9 ng/mL (0.0-2.4) H* 08/08/17 00:57 CK-MB (CK-2) Rel Index 0.4 08/08/17 00:57 Troponin I 0.021 ng/mL (0.000-0.034) 08/08/17 00:57 Total Protein 7.7 g/dL (6.3-8.2) 08/08/17 03:20 Albumin 4.4 g/dL (3.5-5.0) 08/08/17 03:20 Lipase 42 U/L (23-300) 08/08/17 00:57 Urine Color Yellow 08/08/17 01:12 Urine Appearance Turbid (Clear) 08/08/17 01:12 Urine pH 5.5 (5.0-8.0) 08/08/17 01:12 Ur Specific Bighorn 1.019 (1.001-1.035) 08/08/17 01:12 Urine Protein 2+ (Negative) H 08/08/17 01:12 Urine Glucose (UA) Trace (Negative) H 08/08/17 01:12 Urine Ketones 1+ (Negative) H 08/08/17 01:12 Urine Blood Moderate (Negative) H 08/08/17 01:12 Urine Nitrite Negative (Negative) 08/08/17 01:12 Urine Bilirubin Negative (Negative) 08/08/17 01:12 Urine Urobilinogen 2.0 mg/dL (<2.0) 08/08/17 01:12 Ur Leukocyte Esterase Moderate (Negative) H 08/08/17 01:12 Urine RBC 5 /hpf (0-5) 08/08/17 01:12 Urine WBC 22 /hpf (0-5) H 08/08/17 01:12 Urine Bacteria Few /hpf (None) H 08/08/17 01:12 Hyaline Casts 55 /lpf (0-2) H 08/08/17 01:12 Urine Mucus Rare /hpf (None) H 08/08/17 01:12 Salicylates <1.0 mg/dL 08/08/17 00:57 Urine Opiates Screen Detected (NotDetected) H 08/08/17 01:12 Ur Oxycodone Screen Not Detected (NotDetected) 08/08/17 01:12 Urine Methadone Screen Not Detected (NotDetected) 08/08/17 01:12 Ur Propoxyphene Screen Not Detected (NotDetected) 08/08/17 01:12 Acetaminophen <10.0 ug/mL 08/08/17 00:57 Ur Barbiturates Screen Not Detected (NotDetected) 08/08/17 01:12 U Tricyclic Antidepress Detected (NotDetected) H 08/08/17 01:12 Ur Phencyclidine Scrn Not Detected (NotDetected) 08/08/17 01:12 Ur Amphetamines Screen Not Detected (NotDetected) 08/08/17 01:12 U Methamphetamines Scrn Not Detected (NotDetected) 08/08/17 01:12 U Benzodiazepines Scrn Not Detected (NotDetected) 08/08/17 01:12 Urine Cocaine Screen Not Detected (NotDetected) 08/08/17 01:12 U Marijuana (THC) Screen Detected (NotDetected) H 08/08/17 01:12 Serum Alcohol <10 mg/dL 08/08/17 00:57 Influenza Type A RNA Not Detected (Not Detectd) 08/08/17 08:17 Influenza Type B (PCR) Not Detected (Not Detectd) 08/08/17 08:17 CBC & Chem 7: 08/08/17 03:20 08/08/17 03:20 Labs: Abnormal Lab Results - Last 24 Hours (Table) 08/08/17 08/08/17 08/08/17 Range/Units 00:57 00:57 00:57 WBC 25.2 H* (3.8-10.6) k/uL Neutrophils # 22.1 H (1.3-7.7) k/uL Lymphocytes # (1.0-4.8) k/uL Monocytes # 1.8 H (0-1.0) k/uL Chloride 71 L* (98-107) mmol/L Carbon Dioxide 38 H (22-30) mmol/L BUN 44 H (9-20) mg/dL Creatinine 3.20 H (0.66-1.25) mg/dL Glucose 163 H (74-99) mg/dL Plasma Lactic Acid Adrian (0.7-2.0) mmol/L Calcium 10.3 H (8.4-10.2) mg/dL Phosphorus 6.6 H (2.5-4.5) mg/dL Alkaline Phosphatase 134 H (38-126) U/L Ammonia (<30) umol/L Total Creatine Kinase 668 H (55-170) U/L CK-MB (CK-2) 2.9 H* (0.0-2.4) ng/mL Total Protein 9.3 H (6.3-8.2) g/dL Albumin 5.6 H (3.5-5.0) g/dL Urine Protein (Negative) Urine Glucose (UA) (Negative) Urine Ketones (Negative) Urine Blood (Negative) Ur Leukocyte Esterase (Negative) Urine WBC (0-5) /hpf Urine Bacteria (None) /hpf Hyaline Casts (0-2) /lpf Urine Mucus (None) /hpf Urine Opiates Screen (NotDetected) U Tricyclic Antidepress (NotDetected) U Marijuana (THC) Screen (NotDetected) 08/08/17 08/08/17 08/08/17 Range/Units 00:57 00:57 01:12 WBC (3.8-10.6) k/uL Neutrophils # (1.3-7.7) k/uL Lymphocytes # (1.0-4.8) k/uL Monocytes # (0-1.0) k/uL Chloride (98-107) mmol/L Carbon Dioxide (22-30) mmol/L BUN (9-20) mg/dL Creatinine (0.66-1.25) mg/dL Glucose (74-99) mg/dL Plasma Lactic Acid Adrian 11.3 H* (0.7-2.0) mmol/L Calcium (8.4-10.2) mg/dL Phosphorus (2.5-4.5) mg/dL Alkaline Phosphatase (38-126) U/L Ammonia 45 H (<30) umol/L Total Creatine Kinase (55-170) U/L CK-MB (CK-2) (0.0-2.4) ng/mL Total Protein (6.3-8.2) g/dL Albumin (3.5-5.0) g/dL Urine Protein 2+ H (Negative) Urine Glucose (UA) Trace H (Negative) Urine Ketones 1+ H (Negative) Urine Blood Moderate H (Negative) Ur Leukocyte Esterase Moderate H (Negative) Urine WBC 22 H (0-5) /hpf Urine Bacteria Few H (None) /hpf Hyaline Casts 55 H (0-2) /lpf Urine Mucus Rare H (None) /hpf Urine Opiates Screen Detected H (NotDetected) U Tricyclic Antidepress Detected H (NotDetected) U Marijuana (THC) Screen Detected H (NotDetected) 08/08/17 08/08/17 Range/Units 03:20 03:20 WBC 22.7 H (3.8-10.6) k/uL Neutrophils # 20.3 H (1.3-7.7) k/uL Lymphocytes # 0.7 L (1.0-4.8) k/uL Monocytes # 1.4 H (0-1.0) k/uL Chloride 81 L (98-107) mmol/L Carbon Dioxide 44 H* (22-30) mmol/L BUN 49 H (9-20) mg/dL Creatinine 2.20 H (0.66-1.25) mg/dL Glucose 127 H (74-99) mg/dL Plasma Lactic Acid Adrian (0.7-2.0) mmol/L Calcium (8.4-10.2) mg/dL Phosphorus 7.3 H (2.5-4.5) mg/dL Alkaline Phosphatase (38-126) U/L Ammonia (<30) umol/L Total Creatine Kinase (55-170) U/L CK-MB (CK-2) (0.0-2.4) ng/mL Total Protein (6.3-8.2) g/dL Albumin (3.5-5.0) g/dL Urine Protein (Negative) Urine Glucose (UA) (Negative) Urine Ketones (Negative) Urine Blood (Negative) Ur Leukocyte Esterase (Negative) Urine WBC (0-5) /hpf Urine Bacteria (None) /hpf Hyaline Casts (0-2) /lpf Urine Mucus (None) /hpf Urine Opiates Screen (NotDetected) U Tricyclic Antidepress (NotDetected) U Marijuana (THC) Screen (NotDetected) Assessment and Plan Plan: This is a 51-year-old male patient presented to the hospital with signs of sepsis with fever, leukocytosis, lactic acidosis, acute kidney injury. Patient had nausea and vomiting that started after his pain pump was filled on Saturday. He denies any use of [id number] Motrin. He does have burning with urination for the past 2 days along with difficulty initiating urine flow and nocturia which are both chronic. Patient presented for weakness of his lower extremities and inability to walk hold his weight and dress himself. The patient received ceftriaxone which will be continued. Renal ultrasound will be ordered. Blood and urine cultures are in progress. Continue supportive care. Further recommendations as patient progresses. The above dictated assessment and findings were discussed with Dr. Hurst. The impression and plan of care have been directed as dictated. Ingrid Bello nurse practitioner acting as scribe for Dr. Hurst.
[2017-08-08] MEDS: ENOXAPARIN 40 MG/0.4 ML SYRINGE SQ SCH (12:22)
[2017-08-08] MEDS: PANTOPRAZOLE 40 MG/10 ML VIAL IV SCH (12:24)
--- NOTE | 2017-08-08 12:38 | US ---
EXAMINATION TYPE: US kidneys/renal and bladder DATE OF EXAM: 08/08/2017 COMPARISON: NONE CLINICAL HISTORY: YANETH. Fever EXAM MEASUREMENTS: Right Kidney: 11.8 x 6.0 x 5.6 cm Left Kidney: 12.4 x 5.0 x 6.9 cm Right Kidney: No hydronephrosis or masses seen Left Kidney: No hydronephrosis or masses seen Bladder: wnl Bilateral Jets seen: Yes There is no evidence for hydronephrosis at this point in time. No nephrolithiasis is seen. No jethro s are identified. The urinary bladder is anechoic. Bilateral ureteral jets are seen. IMPRESSION: No acute process.
--- NOTE | 2017-08-08 13:04 | P.HPIM ---
History of Present Illness H&P Date: 08/08/17 Chief Complaint: N/V, weakness, muscle spasms 51-year-old male who presented to the emergency room with a chief complaint of generalized weakness, muscle spasms, and nausea and vomiting. The patient states he has been vomiting for the last 3 days and states he was vomiting numerous times per day: 20 times per day. Apparently, the patient had a pain pump inserted in his back last month and he received his first fill on Saturday with Dr. Loya. The patient started having nausea and vomiting and apparently Dr. Louise office called the patient a prescription for Zofran but the patients pharmacy was unable to fill it that day, but stated it would be ready the following day but the patient never went back to pick it up. The patient denies abdominal pain or discomfort. Denies diarrhea or constipation. The patient reports a sore throat and states it feels "raw" from frequenting vomiting. The patient also reports dysuria x 2 days. The patient declines having a fever at home. He was febrile upon admission to the ER at 103.9 degrees Fahrenheit. He was also tachycardic with a rate in the 150s. The patient has a history of chronic back pain secondary to degenerative disc disease and herniated disks. He sees Dr. Loya for his pain medications. The patient states the only prescriptions he receives from Dr. Knutson is his Elavil and Baclofen. The patient also reports daily marijuana use. the patient also has a history of gastroesophageal reflux disease, osteoarthritis, pneumonia , and seizure disorder. He also has a history of anxiety and depression. Patient denies alcohol use. Chest x-ray: subsegmental atelectasis in the right midlung, otherwise negative. CT of the brain: Negative for acute process Laboratory data: WBC 25.2. Hemoglobin 17.1. Platelet count 394. Sodium 144. Potassium 4.0. Chloride 71. Carbon dioxide 38. BUN 44. Creatinine 3.20. calcium 10.3. Phosphorus 6.6. Magnesium 2.0. AST 52. ALT 22. Alkaline phosphatase 134. Ammonia 45. Total creatinine kinase 668. CK-MB 2.9. troponin negative 1 Urinalysis reveals: yellow turbid urine, 2+ proteinuria, trace glucose, 1+ ketonuria, moderate blood, moderate leukocyte esterase, RBC 22. Hyaline casts 55. Toxicology: Positive for opioids, tricyclic antidepressants, and marijuana. Serum alcohol less than 10 Screening for influenza A and B was negative The patient was admitted to the hospital under the care of Dr. Knutson. Consultations were placed to neurology, infectious disease, and nephrology. Review of Systems GENERAL: Patient denies fever. Denies chills. EYES: Denies blurred vision. Denies vision changes. Denies eye pain. EARS, NOSE, MOUTH, & THROAT: positive for sore throat, described as "raw" from emesis. Denies headache. Denies ear pain. RESPIRATORY: Denies cough. Denies shortness of breath. Denies sputum production. Denies hemoptysis. CARDIOVASCULAR: Denies chest pain or pressure. Denies palpitations. Denies arrhythmias. GASTROINTESTINAL: positive for nausea and vomiting 3 days. He currently denies nausea or vomiting.Denies abdominal pain. Denies diarrhea. Denies constipation. Denies heartburn. Denies blood in the stool. GENITOURINARY:positive for dysuria and burning with urination. Denies urinary frequency. Denies cloudy urine. Denies blood in the urine. MUSCULOSKELETAL: positive for chronic back pain. Positive for muscle spasms. positive for generalized weakness and inability to ambulate. INTEGUMENTARY: Denies pruitis. Denies rash. PSYCHIATRIC: Denies suicidal or homicial ideations. ENDOCRINE: Denies weight change. Denies polydipsia. Denies polyuria. HEMATOLOGIC: Denies bleeding disorders. Past Medical History Past Medical History: GERD/Reflux, Osteoarthritis (OA), Pneumonia, Seizure Disorder Additional Past Medical History / Comment(s): Chronic back pain (has pain pump) , herniated discs, DJD, numbness/tingling bilateral feet, carpal tunnel syndrome bilateral wrists, last seizure 2013, sinus problems, chronic cough, bronchitis, occasional double vision d/t L "lazy eye", past rib fractures with dislocations, hemorrhoids. History of Any Multi-Drug Resistant Organisms: None Reported Past Surgical History: Back Surgery, Orthopedic Surgery Additional Past Surgical History / Comment(s): Colonoscopy/benign polypectomy, pain pump in back, R knee arthroscopy, R foot with metal sleeve. Past Anesthesia/Blood Transfusion Reactions: No Reported Reaction Past Psychological History: Anxiety, Depression Additional Psychological History / Comment(s): Pt states his depression is stable at this time. He has had past suicide attempts by overdosing. He denies suicidal athoughts/plans. He resides with his significant other, Parag. Pt uses a cane to amulate. He does not drive, he uses the bus. Smoking Status: Current every day smoker Past Alcohol Use History: None Reported Additional Past Alcohol Use History / Comment(s): The patient is a smoker one pack per day and started smoking in 1972. He smokes marijuana on a regular basis-3 to 4 joints a day. He does not have a medical marijuana card. He denies any other street drug use. He denies alcohol use. 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 Past Drug Use History: Marijuana Additional Drug Use History / Comment(s): Pt smokes 3-4 joints daily - Past Family History Father Family Medical History: Cancer Additional Family Medical History / Comment(s): Father had liver and lung cancer. Mother Family Medical History: No Reported History Medications and Allergies Home Medications Medication Instructions Recorded Confirmed Type Amitriptyline HCl [Elavil] 25 mg PO TID 05/16/15 08/08/17 History Baclofen 10 mg PO BID 05/16/15 08/08/17 History Gabapentin 800 mg PO Q4H 05/16/15 08/08/17 History PARoxetine HCL [Paxil] 40 mg PO DAILY 05/16/15 08/08/17 History Ranitidine HCl 150 mg PO BID PRN 05/16/15 08/08/17 History oxyCODONE-APAP 10-325MG [Percocet 1 tab PO TID PRN 05/16/15 08/08/17 History 10-325 mg] levETIRAcetam [Keppra] 500 mg PO BID 05/15/16 08/08/17 History Morphine Sulfate ER [Ms Contin 15 mg PO Q12HR PRN 08/08/17 08/08/17 History 15Mg] OXcarbazepine [Trileptal] 1,200 mg PO HS 08/08/17 08/08/17 History OXcarbazepine [Trileptal] 600 mg PO DAILY 08/08/17 08/08/17 History Allergies Allergy/AdvReac Type Severity Reaction Status Date / Time coconut oil Allergy Dyspnea, Verified 08/08/17 07:36 SWELLING OF THROAT latex Allergy Rash/Hives Verified 08/08/17 07:36 Penicillins Allergy "TOLD BY Verified 08/08/17 07:36 DR LINDSEY TO TAKE Physical Exam Vitals: Vital Signs Temp Pulse Pulse Resp BP Pulse Ox 08/08/17 12:27 97.7 F 91 18 131/66 97 08/08/17 08:20 88 17 116/70 96 08/08/17 06:53 97.6 F 94 16 112/68 97 08/08/17 05:12 98.7 F 98 14 125/65 94 L 08/08/17 04:35 100 16 130/78 96 08/08/17 03:28 103 H 16 08/08/17 02:56 99.3 F 109 H 14 123/73 96 08/08/17 01:52 100.2 F H 119 H 16 112/63 96 08/08/17 01:16 102.7 F H 125 H 20 141/74 95 08/08/17 00:36 103.9 F H 150 H 20 160/90 95 Intake and Output 08/07/17 08/08/17 08/08/17 22:59 06:59 14:59 Output Total 500 Balance -500 Output: Urine 500 Straight 500 Other: Weight 100.698 kg GENERAL: This is a 51-year-old male in no apparent distress at the time of examination. appears unkempt. HEENT: Head is atraumatic, normocephalic. Pupils are equal, round, and reactive to light. Sclerae anicteric. Conjunctivae are clear. Mucus membranes of the mouth are moist. Neck is supple. RESPIRATORY: Clear to ausculation. No wheezes, rales, or rhonchi. No use of accessory muscles. Patient maintaining oxygen saturation greater than 92%. No chest wall tenderness is noted on palpation or with deep breathing. CARDIOVASCULAR: Regular rate and rhythm. S1 and S2 noted. No systolic or diastolic murmur auscultated. No JVD noted. No S3 or S4 noted. GASTROINTESTINAL: No distention noted. Abdomen soft and round. Normal active bowel sounds auscultated x 4 quadrants. No pain or tenderness noted upon palpation. INTEGUMENTARY: No cyanosis. No jaundice. No rashes noted. No cellulitis noted. EXTREMITIES: 2+ peripheral pulses. No evidence of peripheral edema. No calf tenderness noted. NEUROLOGIC: Cranial nerves II-XII intact. PSYCHIATRIC: Awake, alert, and oriented X 3. Appropriate affect. Results CBC & Chem 7: 08/08/17 03:20 08/08/17 03:20 Labs: Abnormal Lab Results - Last 24 Hours (Table) 08/08/17 08/08/17 08/08/17 Range/Units 00:57 00:57 00:57 WBC 25.2 H* (3.8-10.6) k/uL Neutrophils # 22.1 H (1.3-7.7) k/uL Lymphocytes # (1.0-4.8) k/uL Monocytes # 1.8 H (0-1.0) k/uL Chloride 71 L* (98-107) mmol/L Carbon Dioxide 38 H (22-30) mmol/L BUN 44 H (9-20) mg/dL Creatinine 3.20 H (0.66-1.25) mg/dL Glucose 163 H (74-99) mg/dL Plasma Lactic Acid Adrian (0.7-2.0) mmol/L Calcium 10.3 H (8.4-10.2) mg/dL Phosphorus 6.6 H (2.5-4.5) mg/dL Alkaline Phosphatase 134 H (38-126) U/L Ammonia (<30) umol/L Total Creatine Kinase 668 H (55-170) U/L CK-MB (CK-2) 2.9 H* (0.0-2.4) ng/mL Total Protein 9.3 H (6.3-8.2) g/dL Albumin 5.6 H (3.5-5.0) g/dL Urine Protein (Negative) Urine Glucose (UA) (Negative) Urine Ketones (Negative) Urine Blood (Negative) Ur Leukocyte Esterase (Negative) Urine WBC (0-5) /hpf Urine Bacteria (None) /hpf Hyaline Casts (0-2) /lpf Urine Mucus (None) /hpf Urine Opiates Screen (NotDetected) U Tricyclic Antidepress (NotDetected) U Marijuana (THC) Screen (NotDetected) 08/08/17 08/08/17 08/08/17 Range/Units 00:57 00:57 01:12 WBC (3.8-10.6) k/uL Neutrophils # (1.3-7.7) k/uL Lymphocytes # (1.0-4.8) k/uL Monocytes # (0-1.0) k/uL Chloride (98-107) mmol/L Carbon Dioxide (22-30) mmol/L BUN (9-20) mg/dL Creatinine (0.66-1.25) mg/dL Glucose (74-99) mg/dL Plasma Lactic Acid Adrian 11.3 H* (0.7-2.0) mmol/L Calcium (8.4-10.2) mg/dL Phosphorus (2.5-4.5) mg/dL Alkaline Phosphatase (38-126) U/L Ammonia 45 H (<30) umol/L Total Creatine Kinase (55-170) U/L CK-MB (CK-2) (0.0-2.4) ng/mL Total Protein (6.3-8.2) g/dL Albumin (3.5-5.0) g/dL Urine Protein 2+ H (Negative) Urine Glucose (UA) Trace H (Negative) Urine Ketones 1+ H (Negative) Urine Blood Moderate H (Negative) Ur Leukocyte Esterase Moderate H (Negative) Urine WBC 22 H (0-5) /hpf Urine Bacteria Few H (None) /hpf Hyaline Casts 55 H (0-2) /lpf Urine Mucus Rare H (None) /hpf Urine Opiates Screen Detected H (NotDetected) U Tricyclic Antidepress Detected H (NotDetected) U Marijuana (THC) Screen Detected H (NotDetected) 08/08/17 08/08/17 Range/Units 03:20 03:20 WBC 22.7 H (3.8-10.6) k/uL Neutrophils # 20.3 H (1.3-7.7) k/uL Lymphocytes # 0.7 L (1.0-4.8) k/uL Monocytes # 1.4 H (0-1.0) k/uL Chloride 81 L (98-107) mmol/L Carbon Dioxide 44 H* (22-30) mmol/L BUN 49 H (9-20) mg/dL Creatinine 2.20 H (0.66-1.25) mg/dL Glucose 127 H (74-99) mg/dL Plasma Lactic Acid Adrian (0.7-2.0) mmol/L Calcium (8.4-10.2) mg/dL Phosphorus 7.3 H (2.5-4.5) mg/dL Alkaline Phosphatase (38-126) U/L Ammonia (<30) umol/L Total Creatine Kinase (55-170) U/L CK-MB (CK-2) (0.0-2.4) ng/mL Total Protein (6.3-8.2) g/dL Albumin (3.5-5.0) g/dL Urine Protein (Negative) Urine Glucose (UA) (Negative) Urine Ketones (Negative) Urine Blood (Negative) Ur Leukocyte Esterase (Negative) Urine WBC (0-5) /hpf Urine Bacteria (None) /hpf Hyaline Casts (0-2) /lpf Urine Mucus (None) /hpf Urine Opiates Screen (NotDetected) U Tricyclic Antidepress (NotDetected) U Marijuana (THC) Screen (NotDetected) Microbiology - Last 24 Hours (Table) 08/08/17 01:12 Urine Culture - Preliminary Urine,Voided Assessment and Plan Plan: ASSESSMENT: Nonoliguric acute kidney injury secondary to intravascular volume depletion secondary to nausea and vomiting Severe sepsis, present on admission, may be secondary to possible urinary tract infection or gastroenteritis Lactic acidosis, improved with IV hydration Bacteriuria with complaints of dysuria and burning with urination, suspect urinary tract infection, culture pending Muscle spasms, suspect secondary to acute renal failure, seizure activity unlikely but with patients seizure history can not exclude seizure activity Chronic back pain secondary to DDD with recent placement of pain pump (1 month ago) and first medication fill 08/05/2017 Opioid dependence, secondary to above Seizure disorder, maintained on Keppra and Trileptal Anxiety, unspecified Depression, unspecified Nicotine dependence, patient is a current cigarette smoker Daily cannabis use PLAN: Begin clear liquid diet Infectious disease on consult. Appreciate recommendations and input Continue Rocephin 1 g BID Continue IV fluid @150 mL an hour Await results of blood and urine culture Neurology/pain management on consult. Appreciate recommendations and input Obtain EEG to rule out seizure activity Nephrology on consult. Appreciate recommendations and input Await results of abdominal ultrasound Home meds as appropriate Will order patient's home dose of Percocet for pain. Will hold MS Contin at this time Will also hold gabapentin and baclofen Monitor labs GI prophylaxis: Protonix 40 mg IV Daily DVT prophylaxis: Lovenox 40 mg subcu daily Monitor vital signs and address as appropriate Discharge planning: Patient to return home when stable Further recommendations pending patient's course Nurse practitioner note has been reviewed by physician. Signing provider agrees with the documented findings, assessment, and plan of care.
[2017-08-08] MEDS: AMITRIPTYLINE HCL 25 MG TAB PO SCH ×2 (16:29→21:57)
[2017-08-08 16:51] LABS: Hepatitis B Core IgM Non-Reactive (Non-Reactive)
[2017-08-08 19:00] LABS: Hepatitis A Antibody IgM Non-Reactive (Non-Reactive)
[2017-08-08] MEDS: levETIRAcetam 500 MG TAB PO SCH (20:10)
[2017-08-08] MEDS: OXcarbazepine 300 MG TAB PO SCH (20:11)
[2017-08-08] MEDS: cefTRIAXone IN SWFI 1,000 MG/10 ML SYRINGE IVP SCH (20:11)
[2017-08-08] MEDS ORDERED: ACETAMINOPHEN TAB 325 MG TAB PO PRN (20:13)
[2017-08-08] MEDS: ONDANSETRON 4 MG/2 ML VIAL IVP PRN (20:24)
--- NOTE | 2017-08-08 20:52 | P.CNNES ---
History of Present Illness Consult date: 08/08/17 Reason for Consult: Patient admitted with fever and history of seizure disorder. History of Present Illness: This patient is a 51-year-old right-handed white male who was brought into the emergency room with symptoms of increased nausea vomiting and generalized weakness. He shouldn't recently underwent placement of a pain pump about a month ago. He received his first pain medication on Saturday of this past week. Following this he developed severe nausea vomiting is generalized weakness. He does have a history of underlying seizure disorder and apparently had questionable seizure-like events. He states he has partial seizures and never goes into a grand mal. He was brought into the emergency room for further evaluation. Initially in the ER he had a temperature of 103. He was started on Rocephin and admitted to Hospital. His temperatures come back this evening to 98.4. He denies any neck pain or meningeal irritation. Does not appear to have any signs of meningeal irritation at this time. As noted he is now afebrile and is currently on antibiotic therapy. Infectious disease has been consulted. Patient does take a combination of Keppra and Trileptal as his primary anticonvulsant medications. He did undergo routine EEG today which was reviewed. EEG failed to reveal any active seizure focus. He underwent a computed tomography scan of the brain which was negative for any acute changes. Neurologically he is doing much better now that his temperature has resolved. He was checked for influenza A and B which did come back negative. We would recommend to check his anticonvulsant blood levels tomorrow morning. We reviewed the results of the EEG and CAT scan of the brain with the patient today. We will continue close neurological follow-up for the patient given his history of seizure disorder. His overall prognosis at this time remains guarded. Review of Systems Constitutional: Denies chills, Denies fever Eyes: denies blurred vision, denies pain Ears, nose, mouth and throat: Denies headache, Denies sore throat Cardiovascular: Denies chest pain, Denies shortness of breath Respiratory: Denies cough Gastrointestinal: Denies abdominal pain, Denies diarrhea, Denies nausea, Denies vomiting Musculoskeletal: Denies myalgias Integumentary: Denies pruritus, Denies rash Neurological: Reports change in mentation, Reports seizures, Reports tingling, Denies numbness, Denies weakness Psychiatric: Denies anxiety, Denies depression Endocrine: Denies fatigue, Denies weight change Past Medical History Past Medical History: GERD/Reflux, Osteoarthritis (OA), Pneumonia, Seizure Disorder Additional Past Medical History / Comment(s): Chronic back pain (has pain pump) , herniated discs, DJD, numbness/tingling bilateral feet, carpal tunnel syndrome bilateral wrists, last seizure 2013, sinus problems, chronic cough, bronchitis, occasional double vision d/t L "lazy eye", past rib fractures with dislocations, hemorrhoids. History of Any Multi-Drug Resistant Organisms: None Reported Past Surgical History: Back Surgery, Orthopedic Surgery Additional Past Surgical History / Comment(s): Colonoscopy/benign polypectomy, pain pump in back, R knee arthroscopy, R foot with metal sleeve. Past Anesthesia/Blood Transfusion Reactions: No Reported Reaction Past Psychological History: Anxiety, Depression Additional Psychological History / Comment(s): Pt states his depression is stable at this time. He has had past suicide attempts by overdosing. He denies suicidal athoughts/plans. He resides with his significant other, Parag. Pt uses a cane to amulate. He does not drive, he uses the bus. Smoking Status: Current every day smoker Past Alcohol Use History: None Reported Additional Past Alcohol Use History / Comment(s): The patient is a smoker one pack per day and started smoking in 1972. He smokes marijuana on a regular basis-3 to 4 joints a day. He does not have a medical marijuana card. He denies any other street drug use. He denies alcohol use. 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 Past Drug Use History: Marijuana Additional Drug Use History / Comment(s): Pt smokes 3-4 joints daily - Past Family History Father Family Medical History: Cancer Additional Family Medical History / Comment(s): Father had liver and lung cancer. Mother Family Medical History: No Reported History Medications and Allergies Home Medications Medication Instructions Recorded Confirmed Type Amitriptyline HCl [Elavil] 25 mg PO TID 05/16/15 08/08/17 History Baclofen 10 mg PO BID 05/16/15 08/08/17 History Gabapentin 800 mg PO Q4H 05/16/15 08/08/17 History PARoxetine HCL [Paxil] 40 mg PO DAILY 05/16/15 08/08/17 History Ranitidine HCl 150 mg PO BID PRN 05/16/15 08/08/17 History oxyCODONE-APAP 10-325MG [Percocet 1 tab PO TID PRN 05/16/15 08/08/17 History 10-325 mg] levETIRAcetam [Keppra] 500 mg PO BID 05/15/16 08/08/17 History Morphine Sulfate ER [Ms Contin 15 mg PO Q12HR PRN 08/08/17 08/08/17 History 15Mg] OXcarbazepine [Trileptal] 1,200 mg PO HS 08/08/17 08/08/17 History OXcarbazepine [Trileptal] 600 mg PO DAILY 08/08/17 08/08/17 History Allergies Allergy/AdvReac Type Severity Reaction Status Date / Time coconut oil Allergy Dyspnea, Verified 08/08/17 07:36 SWELLING OF THROAT latex Allergy Rash/Hives Verified 08/08/17 07:36 Penicillins Allergy "TOLD BY Verified 08/08/17 07:36 DR LINDSEY TO TAKE Physical Examination - Vital Signs Vital Signs: Vital Signs Temp Pulse Pulse Resp BP BP Pulse Ox 08/08/17 15:00 98.4 F 85 18 117/66 92 L 08/08/17 14:17 89 18 08/08/17 13:09 98.1 F 89 18 123/70 94 L 08/08/17 12:35 78 16 131/66 98 08/08/17 12:27 97.7 F 91 18 131/66 97 08/08/17 08:20 88 17 116/70 96 08/08/17 06:53 97.6 F 94 16 112/68 97 08/08/17 05:12 98.7 F 98 14 125/65 94 L 08/08/17 04:35 100 16 130/78 96 08/08/17 03:28 103 H 16 08/08/17 02:56 99.3 F 109 H 14 123/73 96 08/08/17 01:52 100.2 F H 119 H 16 112/63 96 08/08/17 01:16 102.7 F H 125 H 20 141/74 95 08/08/17 00:36 103.9 F H 150 H 20 160/90 95 Intake and Output 08/08/17 08/08/17 08/08/17 06:59 14:59 22:59 Output Total 500 Balance -500 Output: Urine 500 Straight 500 Other: Weight 100.698 kg 100.698 kg - Constitutional General appearance: average body habitus, cooperative - EENT EENT: PERRL, mucous membranes moist - Respiratory Respiratory: lungs clear, normal breath sounds - Cardiovascular Cardiovascular: regular rate, normal S1, normal S2 Extremities: no peripheral edema bilaterally - Gastrointestinal Gastrointestinal: normoactive bowel sounds - Integumentary Integumentary: normal - Neurologic Cranial nerve examination: PERRL, EOMI, VFF, V1/V2/V3 grossly intact, face symmetric, tongue midline, intact gag reflex, intact corneal reflex, normal palatal elevation Speech examination: intact Sensorimotor examination: intact Motor examination - right side: 4/5: biceps, triceps, wrist flexion, wrist extension, fiscal accountant, hip flexors, knee extensors, dorsiflexion, toe extension (EHL) , plantarflexion Motor examination - left side: 4/5: biceps, triceps, wrist flexion, wrist extension, fiscal accountant, hip flexors, knee extensors, dorsiflexion, toe extension (EHL) , plantarflexion Detailed sensory examination: intact Reflex and gait examination: intact Reflexes: 1+: ankle, bicep, knee, tricep - Musculoskeletal Musculoskeletal: no pain - Psychiatric Psychiatric: mood/affect appropriate, cooperative Results - Laboratory Findings CBC and BMP: 08/08/17 03:20 08/08/17 03:20 Abnormal Lab Findings: Abnormal Labs 08/08/17 08/08/17 08/08/17 00:57 00:57 00:57 WBC 25.2 H* Neutrophils # 22.1 H Lymphocytes # Monocytes # 1.8 H Chloride 71 L* Carbon Dioxide 38 H BUN 44 H Creatinine 3.20 H Glucose 163 H Plasma Lactic Acid Adrian Calcium 10.3 H Phosphorus 6.6 H Alkaline Phosphatase 134 H Ammonia Total Creatine Kinase 668 H CK-MB (CK-2) 2.9 H* Total Protein 9.3 H Albumin 5.6 H Urine Protein Urine Glucose (UA) Urine Ketones Urine Blood Ur Leukocyte Esterase Urine WBC Urine Bacteria Hyaline Casts Urine Mucus Urine Opiates Screen U Tricyclic Antidepress U Marijuana (THC) Screen 08/08/17 08/08/17 08/08/17 00:57 00:57 01:12 WBC Neutrophils # Lymphocytes # Monocytes # Chloride Carbon Dioxide BUN Creatinine Glucose Plasma Lactic Acid Adrian 11.3 H* Calcium Phosphorus Alkaline Phosphatase Ammonia 45 H Total Creatine Kinase CK-MB (CK-2) Total Protein Albumin Urine Protein 2+ H Urine Glucose (UA) Trace H Urine Ketones 1+ H Urine Blood Moderate H Ur Leukocyte Esterase Moderate H Urine WBC 22 H Urine Bacteria Few H Hyaline Casts 55 H Urine Mucus Rare H Urine Opiates Screen Detected H U Tricyclic Antidepress Detected H U Marijuana (THC) Screen Detected H 08/08/17 08/08/17 03:20 03:20 WBC 22.7 H Neutrophils # 20.3 H Lymphocytes # 0.7 L Monocytes # 1.4 H Chloride 81 L Carbon Dioxide 44 H* BUN 49 H Creatinine 2.20 H Glucose 127 H Plasma Lactic Acid Adrian Calcium Phosphorus 7.3 H Alkaline Phosphatase Ammonia Total Creatine Kinase CK-MB (CK-2) Total Protein Albumin Urine Protein Urine Glucose (UA) Urine Ketones Urine Blood Ur Leukocyte Esterase Urine WBC Urine Bacteria Hyaline Casts Urine Mucus Urine Opiates Screen U Tricyclic Antidepress U Marijuana (THC) Screen Assessment and Plan (1) Intractable back pain Current Visit: Yes Status: Acute Code(s): M54.9 - DORSALGIA, UNSPECIFIED SNOMED Code(s): 732775364 (2) ARF (acute renal failure) Current Visit: Yes Status: Acute Code(s): N17.9 - ACUTE KIDNEY FAILURE, UNSPECIFIED SNOMED Code(s): 00316468 (3) Fever Current Visit: Yes Status: Acute Code(s): R50.9 - FEVER, UNSPECIFIED SNOMED Code(s): 128916214 (4) Recurrent seizures Current Visit: Yes Status: Acute Code(s): G40.909 - EPILEPSY, UNSP, NOT INTRACTABLE, WITHOUT STATUS EPILEPTICUS SNOMED Code(s): 85741111 Plan: This patient is a 51-year-old male who was admitted to Hospital with symptoms of nausea vomiting and sepsis. He was started on Rocephin and admitted to the hospital. His initial temperature in the ER was 103. Blood and urine cultures are pending. Patient has a history of underlying seizure disorder for which she is taking Keppra and Trileptal. He underwent a routine EEG today as there was concern for possible partial seizures. EEG was reviewed the results are noted above. Patient is to continue on Keppra and Trileptal at this time. We are recommending to check his levels tomorrow morning. He is currently on Rocephin for treatment of sepsis. We'll await further recommendations from infectious disease. His overall prognosis at this time remains guarded. Time with Patient: Greater than 30
[2017-08-08] MEDS ORDERED: BACLOFEN 10 MG TAB PO SCH (21:00)
--- NOTE | 2017-08-08 21:34 | EEG ---
ELECTROENCEPHALOGRAM REPORT DATE OF EE08/08/2017 ELECTROENCEPHALOGRAPHIC EXAMINATION REPORT: INDICATION FOR EXAMINATION: This patient is a 51-year-old male being evaluated for seizure disorder. AGE: 51. EEG FINDINGS: A routine 21-channel awake digital EEG recording was accomplished utilizing the 10-20 international system with bipolar and referential montages. The background activity in the most alert resting state consists of a low to medium amplitude, fairly well developed and well sustained 7-8 Hz activity over the posterior head regions. This posterior rhythm attenuates to eye opening. There is a small amount of low amplitude 18-20 Hz beta activity seen maximally over the anterior head regions. Muscle and movement artifact was observed on a few occasions during the tracing. Hyperventilation was not performed. Photic stimulation at flash frequencies of 2-30 Hz produced a good symmetrical occipital driving response. No epileptiform discharges were seen. IMPRESSION: This EEG is within normal limits for the patient's age. The EEG failed to reveal any focal, lateralized, or epileptiform abnormalities. Clinical correlation is recommended. MMDIONI / JORDANN: [id number] /
--- NOTE | 2017-08-08 22:36 | P.CON ---
Consult Note - . Consult date: 08/08/17 Assessment/Plan:: This is a 51-year-old male patient gives history that he had a pain pump placed last month. On Saturday he had saline removed, oracio removed and the pump was filled. After that he developed nausea and vomiting which is been going on for 3 days and he has not been able to keep anything down since Saturday. He states he is vomiting up to 20 times per day. He denies any abdominal pain or diarrhea. He also complains of his legs collapsed on him and he could not hold any weight and he also could not move. He could not dress himself. And up calling EMS and was brought into [facility] emergency center for evaluation where he was found to have a BUN 44, creatinine 3.2, lactic acid 11.3, white count of 25.2, tachycardia of 150 and temperature 103.9. Patient was placed on the sepsis protocol and was given 3 L of IV fluid. He states he has been urinating okay without any difficulty but he has had burning for the past 2 days in further questioning patient states he also has nocturia and difficulty initiating urinary flow. Regarding pain, patient states he has significant tailbone pain that initially started from a fall from a tree as a child and only has worsened over the years. Patient's pain management doctor is Dr. Chan. Patient was started on ceftriaxone, blood culture and urine culture obtained. Chest x-ray is showing atelectasis. Urinalysis was turbid, blood moderate, leukocytes moderate, wbc's 22, bacteria few, nitrates negative. Urine drug screen was positive for tricyclic antidepressants and opiates and marijuana. Alcohol ,acetaminophen and salicylate level was within normal limits. CK 668, ammonia level 45. Please see the consult note as dictated by nurse practitioner Tim Ingrid Bello. The patient is more awake as the day has progressed. He is having urinary symptoms before admission and had evidence of a markedly abnormal urinalysis at admission urine culture is pending as are blood cultures. Lactic acid was markedly elevated admission that may be multifactorial in addition to sepsis and he acute renal failure. Patient is responding to hydration and fluid resuscitation and his lactic acid has normalized. He is feeling slightly better. Is having leukocytosis of Levaquin the basis of sepsis likely from the urinary system and is being monitored and cultures are in process. Nephrology is following renal ultrasound has been requested to ensure there is no obstructive process or hydronephrosis that would complicate the urinary infection. I agree with evaluation, assessment and plan as dictated by nurse practitioner Mrs. Ingrid Bello.
[2017-08-09] MEDS: LACTATED RINGERS 1,000 ML IV SCH ×3 (05:43→11:08)
[2017-08-09 08:01] LABS: Basophils % (A) 0 %; Eosinophils % (A) 0 %; HCT 35.6 % (39.0-53.0); HGB 12.3 gm/dL (13.0-17.5); Lymphocytes # (A) 1.6 k/uL (1.0-4.8); Lymphocytes % (A) 15 %; MCH 30.4 pg (25.0-35.0); MCHC 34.5 g/dL (31.0-37.0); MCV 87.9 fL (80.0-100.0); Mean Platelet Volume 6.5; Monocytes # (A) 0.5 k/uL (0-1.0); Monocytes % (A) 5 %; Neutrophils # (A) 8.4 k/uL (1.3-7.7); Neutrophils % (A) 78 %; Platelet Count 204 k/uL (150-450); RBC 4.06 m/uL (4.30-5.90); RDW 12.7 % (11.5-15.5); WBC 10.7 k/uL (3.8-10.6)
[2017-08-09] MEDS: cefTRIAXone IN SWFI 1,000 MG/10 ML SYRINGE IVP SCH ×2 (08:18→20:23)
[2017-08-09 08:20] LABS: ALT 56 U/L (21-72); AST 238 U/L (17-59); Albumin 3.3 g/dL (3.5-5.0); Alkaline Phosphatase 79 U/L (38-126); Anion Gap 8 mmol/L; Blood Urea Nitrogen 17 mg/dL (9-20); Calcium 8.7 mg/dL (8.4-10.2); Carbon Dioxide 36 mmol/L (22-30); Chloride 91 mmol/L (98-107); Glucose 88 mg/dL (74-99); Phosphorus 2.2 mg/dL (2.5-4.5); Potassium 3.5 mmol/L (3.5-5.1); Sodium 135 mmol/L (137-145); Total Bilirubin 0.6 mg/dL (0.2-1.3); Total Protein 5.6 g/dL (6.3-8.2)
[2017-08-09] MEDS: AMITRIPTYLINE HCL 25 MG TAB PO SCH ×3 (08:21→21:26)
[2017-08-09] MEDS: OXcarbazepine 300 MG TAB PO SCH ×2 (08:21→20:23)
[2017-08-09] MEDS: PARoxetine 20 MG TAB PO SCH (08:21)
[2017-08-09] MEDS: levETIRAcetam 500 MG TAB PO SCH ×2 (08:21→20:22)
[2017-08-09] MEDS: PANTOPRAZOLE 40 MG/10 ML VIAL IV SCH (08:22)
[2017-08-09] MEDS: ENOXAPARIN 40 MG/0.4 ML SYRINGE SQ SCH (08:22)
[2017-08-09] MEDS ORDERED: MD COMMUNICATION TO PHARMACY 1 EACH MISC PO PRN (10:52)
--- NOTE | 2017-08-09 10:55 | P.PN ---
Subjective Patient is seen in follow-up for acute kidney injury. Renal injury has resolved and GFR is back to baseline. Patient's currently resting in bed. Hemodynamic is stable. No active complaints at this time. Vital signs are stable. General: The patient appeared well nourished and normally developed. HEENT: Head exam is unremarkable. Neck is without jugular venous distension. LUNGS: Lungs are clear to auscultation and percussion. Breath sounds decreased. HEART: Rate and Rhythm are regular. First and second heart sounds normal. No murmurs, rubs or gallops. ABDOMEN: Abdominal exam reveals normal bowel sounds. Non-tender and non- distended. No evidence of peritonitis. EXTREMITITES: No clubbing, cyanosis, or edema. Objective - Vital Signs Vital signs: Vital Signs Temp 98.5 F 08/09/17 07:00 Pulse 62 08/09/17 08:00 Resp 16 08/09/17 08:00 BP 111/59 08/09/17 07:00 Pulse Ox 95 08/09/17 07:00 Intake & Output 08/08/17 08/09/17 08/09/17 18:59 06:59 18:59 Intake Total 2490 Output Total 600 850 Balance -600 1640 Weight 100.698 kg Intake: Intake, IV Titration 1900 Amount Lactated Ringers 1,000 ml 1900 @ 150 mls/hr IV .Q6H40M [facility] Rx#:[id number] Oral 590 Output: Urine 600 850 Other: Voiding Method Urinal Urinal # Voids 2 - Labs CBC & Chem 7: 08/09/17 07:32 08/09/17 07:32 Labs: Abnormal Lab Results - Last 24 Hours (Table) 08/09/17 08/09/17 Range/Units 07:32 07:32 WBC 10.7 H (3.8-10.6) k/uL RBC 4.06 L (4.30-5.90) m/uL Hgb 12.3 L (13.0-17.5) gm/dL Hct 35.6 L (39.0-53.0) % Neutrophils # 8.4 H (1.3-7.7) k/uL Sodium 135 L (137-145) mmol/L Chloride 91 L (98-107) mmol/L Carbon Dioxide 36 H (22-30) mmol/L Phosphorus 2.2 L (2.5-4.5) mg/dL AST 238 H (17-59) U/L Total Protein 5.6 L (6.3-8.2) g/dL Albumin 3.3 L (3.5-5.0) g/dL Microbiology - Last 24 Hours (Table) 08/08/17 01:12 Urine Culture - Final Urine,Voided 08/08/17 03:57 Blood Culture - Preliminary Blood No Growth after 24 hours Assessment and Plan Plan: Assessment: #1. Nonoliguric acute kidney injury mostly prerenal secondary to intravascular volume depletion secondary to nausea and vomiting. Creatinine was 3.2 and is down to 0.69 today. #2. Severe sepsis possibly due to UTI. Infectious disease following. #3. Muscle spasms likely related to high-dose baclofen in the setting of acute kidney injury. Improved. #4. Metabolic alkalosis secondary to severe volume contraction. Improved. #5. Lactic acidosis secondary to hypoperfusion, improved with IV hydration. #6. Hyperphosphatemia secondary to acute kidney injury. Resolved. Now actually slightly hypophosphatemic. Plan: I will decrease the rate of IV fluids to 100 mL an hour. Follow-up cultures. 20 mmol of K-Phos IV today. Repeat electrolytes in the morning.
[2017-08-09] MEDS: POTASSIUM PHOSPHATE 10 MMOL in SODIUM CHLORIDE 0.9% 250 ML IV SCH ×2 (12:41→14:32)
--- NOTE | 2017-08-09 13:05 | P.PN ---
Subjective Progress Note Date: 08/09/17 51-year-old male who presented to the emergency room with a chief complaint of generalized weakness, muscle spasms, and nausea and vomiting. The patient states he has been vomiting for the last 3 days and states he was vomiting numerous times per day: 20 times per day. Apparently, the patient had a pain pump inserted in his back last month and he received his first fill on Saturday with Dr. Loya. The patient started having nausea and vomiting and apparently Dr. Louise office called the patient a prescription for Zofran but the patients pharmacy was unable to fill it that day, but stated it would be ready the following day but the patient never went back to pick it up. The patient denies abdominal pain or discomfort. Denies diarrhea or constipation. The patient reports a sore throat and states it feels "raw" from frequenting vomiting. The patient also reports dysuria x 2 days. The patient declines having a fever at home. He was febrile upon admission to the ER at 103.9 degrees Fahrenheit. He was also tachycardic with a rate in the 150s. The patient has a history of chronic back pain secondary to degenerative disc disease and herniated disks. He sees Dr. Loya for his pain medications. The patient states the only prescriptions he receives from Dr. Knutson is his Elavil and Baclofen. The patient also reports daily marijuana use. the patient also has a history of gastroesophageal reflux disease, osteoarthritis, pneumonia , and seizure disorder. He also has a history of anxiety and depression. Patient denies alcohol use. Chest x-ray: subsegmental atelectasis in the right midlung, otherwise negative. CT of the brain: Negative for acute process Laboratory data: WBC 25.2. Hemoglobin 17.1. Platelet count 394. Sodium 144. Potassium 4.0. Chloride 71. Carbon dioxide 38. BUN 44. Creatinine 3.20. calcium 10.3. Phosphorus 6.6. Magnesium 2.0. AST 52. ALT 22. Alkaline phosphatase 134. Ammonia 45. Total creatinine kinase 668. CK-MB 2.9. troponin negative 1 Urinalysis reveals: yellow turbid urine, 2+ proteinuria, trace glucose, 1+ ketonuria, moderate blood, moderate leukocyte esterase, RBC 22. Hyaline casts 55. Toxicology: Positive for opioids, tricyclic antidepressants, and marijuana. Serum alcohol less than 10 Screening for influenza A and B was negative The patient was admitted to the hospital under the care of Dr. Knutson. Consultations were placed to neurology, infectious disease, and nephrology. 08/09/2017 Patient seen and examined at the bedside. Patient awake and alert. Patient underwent EEG which was negative for seizure activity. Creatinine today is 0.69 , down from 2.20 yesterday. BUN is 17, down from 49 yesterday. Blood cultures are positive for gram postive bacilli, likely contamination. Urine culture is negative at the 18 hour sean. WBC today is 10.7, down from 22.7 yesterday. Infectious disease is on consult. Patient remains on Rocephin. Patient states he is feeling better today. Denies shortness of breath. Denies chest pain. States his pain is tolerable at this time. Objective - Vital Signs Vital signs: Vital Signs Temp 98.5 F 08/09/17 07:00 Pulse 62 08/09/17 07:00 Resp 16 08/09/17 07:00 BP 111/59 08/09/17 07:00 Pulse Ox 95 08/09/17 07:00 Intake & Output 08/08/17 08/09/17 08/09/17 18:59 06:59 18:59 Intake Total 2490 Output Total 600 850 Balance -600 1640 Weight 100.698 kg Intake: Intake, IV Titration 1900 Amount Lactated Ringers 1,000 ml 1900 @ 150 mls/hr IV .Q6H40M [facility] Rx#:[id number] Oral 590 Output: Urine 600 850 Other: Voiding Method Urinal # Voids 2 - Exam GENERAL: This is a 51-year-old male in no apparent distress at the time of examination. appears unkempt. HEENT: Head is atraumatic, normocephalic. Pupils are equal, round, and reactive to light. Sclerae anicteric. Conjunctivae are clear. Mucus membranes of the mouth are moist. Neck is supple. RESPIRATORY: Clear to ausculation. No wheezes, rales, or rhonchi. No use of accessory muscles. Patient maintaining oxygen saturation greater than 92%. No chest wall tenderness is noted on palpation or with deep breathing. CARDIOVASCULAR: Regular rate and rhythm. S1 and S2 noted. No systolic or diastolic murmur auscultated. No JVD noted. No S3 or S4 noted. GASTROINTESTINAL: No distention noted. Abdomen soft and round. Normal active bowel sounds auscultated x 4 quadrants. No pain or tenderness noted upon palpation. INTEGUMENTARY: No cyanosis. No jaundice. No rashes noted. No cellulitis noted. EXTREMITIES: 2+ peripheral pulses. No evidence of peripheral edema. No calf tenderness noted. NEUROLOGIC: Cranial nerves II-XII intact. PSYCHIATRIC: Awake, alert, and oriented X 3. Appropriate affect. - Labs CBC & Chem 7: 08/09/17 07:32 08/09/17 07:32 Labs: Abnormal Lab Results - Last 24 Hours (Table) 08/09/17 08/09/17 Range/Units 07:32 07:32 WBC 10.7 H (3.8-10.6) k/uL RBC 4.06 L (4.30-5.90) m/uL Hgb 12.3 L (13.0-17.5) gm/dL Hct 35.6 L (39.0-53.0) % Neutrophils # 8.4 H (1.3-7.7) k/uL Sodium 135 L (137-145) mmol/L Chloride 91 L (98-107) mmol/L Carbon Dioxide 36 H (22-30) mmol/L Phosphorus 2.2 L (2.5-4.5) mg/dL AST 238 H (17-59) U/L Total Protein 5.6 L (6.3-8.2) g/dL Albumin 3.3 L (3.5-5.0) g/dL Microbiology - Last 24 Hours (Table) 08/08/17 03:57 Blood Culture - Preliminary Blood No Growth after 24 hours 08/08/17 01:12 Urine Culture - Preliminary Urine,Voided Assessment and Plan Plan: ASSESSMENT: Nonoliguric acute kidney injury secondary to intravascular volume depletion secondary to nausea and vomiting, improved Sepsis, present on admission, etiology unclear Lactic acidosis, improved with IV hydration Bacteriuria with complaints of dysuria and burning with urination, suspect urinary tract infection, culture negative at 18 hour sean Gram positive bacteremia, suspect contamination, repeat cultures pending Muscle spasms, suspect secondary to acute renal failure, seizure activity ruled out Chronic back pain secondary to DDD with recent placement of pain pump (1 month ago) and first medication fill 08/05/2017 Opioid dependence, secondary to above Seizure disorder, maintained on Keppra and Trileptal Anxiety, unspecified Depression, unspecified Nicotine dependence, patient is a current cigarette smoker Daily cannabis use PLAN: Infectious disease on consult. Appreciate recommendations and input Continue Rocephin 1 g BID Repeat blood cultures Continue IV fluid @100 mL an hour Await results of blood and urine culture Neurology/pain management on consult. Appreciate recommendations and input Nephrology on consult. Appreciate recommendations and input K-phos ordered per nephro Home meds as appropriate Will order patient's home dose of Percocet for pain. Will hold MS Contin at this time Will also hold gabapentin and baclofen Monitor labs GI prophylaxis: Protonix 40 mg PO Daily DVT prophylaxis: Lovenox 40 mg subcu daily Monitor vital signs and address as appropriate Discharge planning: Patient to return home when stable Further recommendations pending patient's course Nurse practitioner note has been reviewed by physician. Signing provider agrees with the documented findings, assessment, and plan of care.
[2017-08-09] MEDS: SODIUM CHLORIDE 0.9% 1,000 ML IV SCH ×2 (13:30→23:07)
[2017-08-09] MEDS: BENZOCAINE/MENTHOL LOZENG 1 EACH LOZENGE MUCOUS MEM PRN (14:33)
--- NOTE | 2017-08-09 16:01 | P.PN ---
Subjective Progress Note Date: 08/09/17 This patient is a 51-year-old male who was admitted to the hospital with severe sepsis and questionable seizure activity. Patient has a history of recently having had a pain pump placed about a month ago. He was having increased nausea vomiting symptoms as well as high-grade fever. He was admitted to hospital and had evidence suggesting acute urinary tract infection. He underwent ultrasound of the kidneys which came back negative for hydronephrosis. He has been started on Rocephin and has responded well. Kidney function also has significantly improved since admission. He has a history of seizure disorder and is currently on anticonvulsant therapy. He underwent routine EEG which was within normal limits. We're waiting anticonvulsant blood levels to return from the laboratory. He seems to be doing better today in terms of his mental status. As noted he is being treated with antibiotic coverage and seems to be responding very well. We will continue to follow his progress closely during this admission. Objective - Vital Signs Vital signs: Vital Signs Temp 97.6 F 08/09/17 15:00 Pulse 57 L 08/09/17 15:00 Resp 16 08/09/17 15:00 BP 118/76 08/09/17 15:00 Pulse Ox 94 L 08/09/17 15:00 Intake & Output 08/08/17 08/09/17 08/09/17 18:59 06:59 18:59 Intake Total 2490 1710 Output Total 600 850 Balance -600 1640 1710 Weight 100.698 kg Intake: Intake, IV Titration 1900 750 Amount Lactated Ringers 1,000 ml 1900 @ 100 mls/hr IV .Q10H [facility] Rx#:[id number] Potassium Phosphate 10 250 mmol In Sodium Chloride 0 .9% 250 ml @ 125 mls/hr IV Q2H [facility] Rx#:[id number] Sodium Chloride 0.9% 1, 500 000 ml @ 100 mls/hr IV . Q10H [facility] Rx#:[id number] Oral 590 960 Output: Urine 600 850 Other: Voiding Method Urinal Urinal # Voids 2 2 - Exam Physical examination: PHYSICAL EXAMINATION: Patient is resting comfortably in bed. VITAL SIGNS: Blood pressure is [111/59]. Heart rate is [62]. Respiration is [16] . Temperature is [98.5]. HEENT: Head is atraumatic, neck is supple, there were no carotid bruits. CHEST: Lungs are clear to auscultation and percussion. CARDIAC: S1, S2 normal rate and rhythm. There is no murmur. ABDOMEN: Soft and nontender. Bowel sounds are present. EXTREMITIES: There is no pedal edema. Peripheral pulses are present. Neurological examination: Patient's neurological examination is unchanged from yesterday. - Labs CBC & Chem 7: 08/09/17 07:32 08/09/17 07:32 Labs: Abnormal Lab Results - Last 24 Hours (Table) 08/09/17 08/09/17 Range/Units 07:32 07:32 WBC 10.7 H (3.8-10.6) k/uL RBC 4.06 L (4.30-5.90) m/uL Hgb 12.3 L (13.0-17.5) gm/dL Hct 35.6 L (39.0-53.0) % Neutrophils # 8.4 H (1.3-7.7) k/uL Sodium 135 L (137-145) mmol/L Chloride 91 L (98-107) mmol/L Carbon Dioxide 36 H (22-30) mmol/L Phosphorus 2.2 L (2.5-4.5) mg/dL AST 238 H (17-59) U/L Total Protein 5.6 L (6.3-8.2) g/dL Albumin 3.3 L (3.5-5.0) g/dL Microbiology - Last 24 Hours (Table) 08/08/17 03:57 Blood Culture Gram Stain - Preliminary Blood 08/08/17 03:57 Blood Culture - Final Blood 08/08/17 01:12 Urine Culture - Final Urine,Voided Assessment and Plan (1) Intractable back pain Current Visit: Yes Status: Acute Code(s): M54.9 - DORSALGIA, UNSPECIFIED SNOMED Code(s): 664162951 (2) ARF (acute renal failure) Current Visit: Yes Status: Acute Code(s): N17.9 - ACUTE KIDNEY FAILURE, UNSPECIFIED SNOMED Code(s): 17500321 (3) Fever Current Visit: Yes Status: Acute Code(s): R50.9 - FEVER, UNSPECIFIED SNOMED Code(s): 031003938 (4) Recurrent seizures Current Visit: Yes Status: Acute Code(s): G40.909 - EPILEPSY, UNSP, NOT INTRACTABLE, WITHOUT STATUS EPILEPTICUS SNOMED Code(s): 97230083 Plan: This patient is a 51-year-old male who was admitted to Hospital with chief complaint of generalized weakness and questionable seizure activity. He underwent a routine EEG which was reviewed and was negative for any evidence of a seizure discharge. He is currently on anticonvulsant medications. He is being treated for urinary tract infection and is currently on Rocephin. He has responded well. Kidney function has markedly improved today as well. Mental status seems to be near baseline for him at this time. We will continue to follow his progress closely during this admission. Still awaiting results of his anticonvulsant blood levels. We will continue to follow him closely during this admission and adjust his medications if necessary. So overall prognosis at this time remains guarded.
[2017-08-09 19:39] VITALS: RESP 18
[2017-08-09] MEDS: ONDANSETRON 4 MG/2 ML VIAL IVP PRN (21:26)
--- NOTE | 2017-08-10 00:09 | P.PN ---
Subjective Progress Note Date: 08/09/17 Principal diagnosis: Altered mental status This is a 51-year-old male patient gives history that he had a pain pump placed last month. On Saturday he had saline removed, oracio removed and the pump was filled. After that he developed nausea and vomiting which is been going on for 3 days and he has not been able to keep anything down since Saturday. He states he is vomiting up to 20 times per day. He denies any abdominal pain or diarrhea. He also complains of his legs collapsed on him and he could not hold any weight and he also could not move. He could not dress himself. And up calling EMS and was brought into [facility] emergency center for evaluation where he was found to have a BUN 44, creatinine 3.2, lactic acid 11.3, white count of 25.2, tachycardia of 150 and temperature 103.9. Patient was placed on the sepsis protocol and was given 3 L of IV fluid. He states he has been urinating okay without any difficulty but he has had burning for the past 2 days in further questioning patient states he also has nocturia and difficulty initiating urinary flow. Regarding pain, patient states he has significant tailbone pain that initially started from a fall from a tree as a child and only has worsened over the years. Patient's pain management doctor is Dr. Chan. Patient was started on ceftriaxone, blood culture and urine culture obtained. Chest x-ray is showing atelectasis. Urinalysis was turbid, blood moderate, leukocytes moderate, wbc's 22, bacteria few, nitrates negative. Urine drug screen was positive for tricyclic antidepressants and opiates and marijuana. Alcohol acetaminophen and salicylate level was within normal limits. CK 668, ammonia level 45. On 08/09/2017 patient has had some improvement. No evidence of any seizure activity. Distal feeling tired and weak. However his creatinine has now normalized with rapid improvement of acute renal failure and significant acidosis. His significant spasticity is also improved. Objective - Vital Signs Vital signs: Vital Signs Temp 98.5 F 08/09/17 21:20 Pulse 68 08/09/17 21:20 Resp 18 08/09/17 21:20 BP 129/60 08/09/17 21:20 Pulse Ox 95 08/09/17 21:20 Intake & Output 04/10/2108/09/17 08/10/17 06:59 18:59 06:59 Intake Total 2490 1710 300 Output Total 850 850 Balance 1640 860 300 Intake: Intake, IV Titration 1900 750 300 Amount Lactated Ringers 1,000 ml 1900 @ 100 mls/hr IV .Q10H DONG Rx#:[id number] Potassium Phosphate 10 250 mmol In Sodium Chloride 0 .9% 250 ml @ 125 mls/hr IV Q2H DONG Rx#:[id number] Sodium Chloride 0.9% 1, 500 300 000 ml @ 100 mls/hr IV . Q10H DONG Rx#:[id number] Oral 590 960 Output: Urine 850 850 Other: Voiding Method Urinal Urinal # Voids 2 2 - Exam Gen: This is an unkempt 51-year-old male patient on the ER stretcher. He appears to be comfortable and in no acute distress. HEENT: Head is atraumatic, normocephalic. Pupils equal, round. Sclerae is anicteric. Conjunctiva pink. Mucous members of the mouth are moist. Patient is edentulous on the top and lower teeth are in poor order. NECK: Supple. No JVD. No lymphadenopathy. No thyromegaly. LUNGS: Clear to auscultation. No wheezes or rhonchi. No intercostal retractions. HEART: Regular rate and rhythm. No murmur. ABDOMEN: Soft. Bowel sounds are present. No masses. No tenderness. EXTREMITIES: No pedal edema. No calf tenderness. Dorsalis pedis +2 bilaterally. NEUROLOGICAL: Patient is awake, alert and oriented x3. - Labs CBC & Chem 7: 08/09/17 07:32 08/09/17 07:32 Labs: Abnormal Lab Results - Last 24 Hours (Table) 08/09/17 08/09/17 Range/Units 07:32 07:32 WBC 10.7 H (3.8-10.6) k/uL RBC 4.06 L (4.30-5.90) m/uL Hgb 12.3 L (13.0-17.5) gm/dL Hct 35.6 L (39.0-53.0) % Neutrophils # 8.4 H (1.3-7.7) k/uL Sodium 135 L (137-145) mmol/L Chloride 91 L (98-107) mmol/L Carbon Dioxide 36 H (22-30) mmol/L Phosphorus 2.2 L (2.5-4.5) mg/dL AST 238 H (17-59) U/L Total Protein 5.6 L (6.3-8.2) g/dL Albumin 3.3 L (3.5-5.0) g/dL Microbiology - Last 24 Hours (Table) 08/08/17 03:57 Blood Culture Gram Stain - Preliminary Blood 08/08/17 03:57 Blood Culture - Final Blood 08/08/17 01:12 Urine Culture - Final Urine,Voided Laboratory Results WBC 10.7 k/uL (3.8-10.6) H 08/09/17 07:32 RBC 4.06 m/uL (4.30-5.90) L 08/09/17 07:32 Hgb 12.3 gm/dL (13.0-17.5) L 08/09/17 07:32 Hct 35.6 % (39.0-53.0) L 08/09/17 07:32 MCV 87.9 fL (80.0-100.0) 08/09/17 07:32 MCH 30.4 pg (25.0-35.0) 08/09/17 07:32 MCHC 34.5 g/dL (31.0-37.0) 08/09/17 07:32 RDW 12.7 % (11.5-15.5) 08/09/17 07:32 Plt Count 204 k/uL (150-450) 08/09/17 07:32 Neutrophils % 78 % 08/09/17 07:32 Lymphocytes % 15 % 08/09/17 07:32 Monocytes % 5 % 08/09/17 07:32 Eosinophils % 0 % 08/09/17 07:32 Basophils % 0 % 08/09/17 07:32 Neutrophils # 8.4 k/uL (1.3-7.7) H 08/09/17 07:32 Lymphocytes # 1.6 k/uL (1.0-4.8) 08/09/17 07:32 Monocytes # 0.5 k/uL (0-1.0) 08/09/17 07:32 Eosinophils # 0.0 k/uL (0-0.7) 08/09/17 07:32 Basophils # 0.0 k/uL (0-0.2) 08/09/17 07:32 PT 10.7 sec (9.0-12.0) 08/08/17 00:57 INR 1.1 (<1.2) 08/08/17 00:57 APTT 22.4 sec (22.0-30.0) 08/08/17 00:57 Sodium 135 mmol/L (137-145) L 08/09/17 07:32 Potassium 3.5 mmol/L (3.5-5.1) 08/09/17 07:32 Chloride 91 mmol/L (98-107) L 08/09/17 07:32 Carbon Dioxide 36 mmol/L (22-30) H 08/09/17 07:32 Anion Gap 8 mmol/L 08/09/17 07:32 BUN 17 mg/dL (9-20) 08/09/17 07:32 Creatinine 0.69 mg/dL (0.66-1.25) 08/09/17 07:32 Est GFR (CKD-EPI)AfAm >90 (>60 ml/min/1.73 sqM) 08/09/17 07:32 Est GFR (CKD-EPI)NonAf >90 (>60 ml/min/1.73 sqM) 08/09/17 07:32 Glucose 88 mg/dL (74-99) 08/09/17 07:32 Lactic Ac Sepsis Rflx Y 08/08/17 01:31 Plasma Lactic Acid Adrian 2.0 mmol/L (0.7-2.0) 08/08/17 03:20 Calcium 8.7 mg/dL (8.4-10.2) 08/09/17 07:32 Phosphorus 2.2 mg/dL (2.5-4.5) L 08/09/17 07:32 Magnesium 2.0 mg/dL (1.6-2.3) 08/09/17 07:32 Total Bilirubin 0.6 mg/dL (0.2-1.3) 08/09/17 07:32 AST 238 U/L (17-59) H 08/09/17 07:32 ALT 56 U/L (21-72) 08/09/17 07:32 Alkaline Phosphatase 79 U/L (38-126) 08/09/17 07:32 Ammonia 45 umol/L (<30) H 08/08/17 00:57 Total Creatine Kinase 668 U/L (55-170) H 08/08/17 00:57 CK-MB (CK-2) 2.9 ng/mL (0.0-2.4) H* 08/08/17 00:57 CK-MB (CK-2) Rel Index 0.4 08/08/17 00:57 Troponin I 0.021 ng/mL (0.000-0.034) 08/08/17 00:57 Total Protein 5.6 g/dL (6.3-8.2) L 08/09/17 07:32 Albumin 3.3 g/dL (3.5-5.0) L 08/09/17 07:32 Lipase 42 U/L (23-300) 08/08/17 00:57 Urine Color Yellow 08/08/17 01:12 Urine Appearance Turbid (Clear) 08/08/17 01:12 Urine pH 5.5 (5.0-8.0) 08/08/17 01:12 Ur Specific Geraldine 1.019 (1.001-1.035) 08/08/17 01:12 Urine Protein 2+ (Negative) H 08/08/17 01:12 Urine Glucose (UA) Trace (Negative) H 08/08/17 01:12 Urine Ketones 1+ (Negative) H 08/08/17 01:12 Urine Blood Moderate (Negative) H 08/08/17 01:12 Urine Nitrite Negative (Negative) 08/08/17 01:12 Urine Bilirubin Negative (Negative) 08/08/17 01:12 Urine Urobilinogen 2.0 mg/dL (<2.0) 08/08/17 01:12 Ur Leukocyte Esterase Moderate (Negative) H 08/08/17 01:12 Urine RBC 5 /hpf (0-5) 08/08/17 01:12 Urine WBC 22 /hpf (0-5) H 08/08/17 01:12 Urine Bacteria Few /hpf (None) H 08/08/17 01:12 Hyaline Casts 55 /lpf (0-2) H 08/08/17 01:12 Urine Mucus Rare /hpf (None) H 08/08/17 01:12 Salicylates <1.0 mg/dL 08/08/17 00:57 Urine Opiates Screen Detected (NotDetected) H 08/08/17 01:12 Ur Oxycodone Screen Not Detected (NotDetected) 08/08/17 01:12 Urine Methadone Screen Not Detected (NotDetected) 08/08/17 01:12 Ur Propoxyphene Screen Not Detected (NotDetected) 08/08/17 01:12 Acetaminophen <10.0 ug/mL 08/08/17 00:57 Ur Barbiturates Screen Not Detected (NotDetected) 08/08/17 01:12 U Tricyclic Antidepress Detected (NotDetected) H 08/08/17 01:12 Ur Phencyclidine Scrn Not Detected (NotDetected) 08/08/17 01:12 Ur Amphetamines Screen Not Detected (NotDetected) 08/08/17 01:12 U Methamphetamines Scrn Not Detected (NotDetected) 08/08/17 01:12 U Benzodiazepines Scrn Not Detected (NotDetected) 08/08/17 01:12 Urine Cocaine Screen Not Detected (NotDetected) 08/08/17 01:12 U Marijuana (THC) Screen Detected (NotDetected) H 08/08/17 01:12 Serum Alcohol <10 mg/dL 08/08/17 00:57 Hepatitis A IgM Ab Non-Reactive (Non-Reactive) 08/08/17 03:20 Hep Bs Antigen Non-Reactive (Non-Reactive) 08/08/17 03:20 Hep B Core IgM Ab Non-Reactive (Non-Reactive) 08/08/17 03:20 Hep C IgG Ab Non-Reactive (Non-Reactive) 08/08/17 03:20 Influenza Type A RNA Not Detected (Not Detectd) 08/08/17 08:17 Influenza Type B (PCR) Not Detected (Not Detectd) 08/08/17 08:17 Microbiology 08/08/17 03:57 Blood Blood Culture Gram Stain - Preliminary 08/08/17 03:57 Blood Blood Culture - Final 08/08/17 01:12 Urine,Voided Urine Culture - Final Assessment and Plan (1) Fever Current Visit: Yes Status: Acute Code(s): R50.9 - FEVER, UNSPECIFIED SNOMED Code(s): 425269130 (2) ARF (acute renal failure) Current Visit: Yes Status: Acute Code(s): N17.9 - ACUTE KIDNEY FAILURE, UNSPECIFIED SNOMED Code(s): 95239537 (3) Leukocytosis Current Visit: Yes Status: Acute Code(s): D72.829 - ELEVATED WHITE BLOOD CELL COUNT, UNSPECIFIED SNOMED Code(s): 224960068 (4) Urinary tract infection Narrative/Plan: The patient is more awake as the day has progressed. He is having urinary symptoms before admission and had evidence of a markedly abnormal urinalysis at admission urine culture is pending as are blood cultures. Lactic acid was markedly elevated admission that may be multifactorial in addition to sepsis and he acute renal failure. Patient is responding to hydration and fluid resuscitation and his lactic acid has normalized. He is feeling slightly better. Is having leukocytosis of Levaquin the basis of sepsis likely from the urinary system and is being monitored and cultures are in process. Nephrology is following renal ultrasound has been requested to ensure there is no obstructive process or hydronephrosis that would complicate the urinary infection. On 08/09/2017 the patient has had some further improvement. His acute failure resolved. His leukocytosis is improving. Renal ultrasound is negative for any obstruction. No evidence of any seizures. Overall there is improvement. He is receiving intravenous antibiotic therapy with Rocephin for concerns to sepsis from urinary system. Cultures are in process. Has been seen by nephrology and neurology and they're noting a marked improvements. Cultures will direct his course of antibiotic therapy. Current Visit: Yes Status: Acute Code(s): N39.0 - URINARY TRACT INFECTION, SITE NOT SPECIFIED SNOMED Code(s): 09203056
[2017-08-10] MEDS: BENZOCAINE/MENTHOL LOZENG 1 EACH LOZENGE MUCOUS MEM PRN ×2 (07:13→11:26)
[2017-08-10 07:14] LABS: Basophils % (A) 0 %; Eosinophils # (A) 0.1 k/uL (0-0.7); Eosinophils % (A) 1 %; HGB 11.8 gm/dL (13.0-17.5); Lymphocytes # (A) 1.5 k/uL (1.0-4.8); Lymphocytes % (A) 23 %; MCH 30.3 pg (25.0-35.0); MCHC 34.7 g/dL (31.0-37.0); MCV 87.3 fL (80.0-100.0); Mean Platelet Volume 6.3; Monocytes # (A) 0.4 k/uL (0-1.0); Monocytes % (A) 6 %; Neutrophils # (A) 4.4 k/uL (1.3-7.7); Neutrophils % (A) 67 %; Platelet Count 183 k/uL (150-450); RBC 3.89 m/uL (4.30-5.90); RDW 12.5 % (11.5-15.5); WBC 6.5 k/uL (3.8-10.6)
[2017-08-10] MEDS: AMITRIPTYLINE HCL 25 MG TAB PO SCH (07:15)
[2017-08-10] MEDS: OXcarbazepine 300 MG TAB PO SCH (07:16)
[2017-08-10] MEDS: levETIRAcetam 500 MG TAB PO SCH (07:16)
[2017-08-10] MEDS: ENOXAPARIN 40 MG/0.4 ML SYRINGE SQ SCH (07:16)
[2017-08-10] MEDS: PARoxetine 20 MG TAB PO SCH (07:17)
[2017-08-10] MEDS: cefTRIAXone IN SWFI 1,000 MG/10 ML SYRINGE IVP SCH (07:20)
[2017-08-10 07:29] LABS: ALT 53 U/L (21-72); AST 145 U/L (17-59); Alkaline Phosphatase 65 U/L (38-126); Anion Gap 7 mmol/L; Blood Urea Nitrogen 13 mg/dL (9-20); Calcium 8.4 mg/dL (8.4-10.2); Carbon Dioxide 31 mmol/L (22-30); Chloride 97 mmol/L (98-107); Glucose 87 mg/dL (74-99); Magnesium 1.8 mg/dL (1.6-2.3); Phosphorus 2.6 mg/dL (2.5-4.5); Potassium 3.6 mmol/L (3.5-5.1); Sodium 135 mmol/L (137-145); Total Bilirubin 0.4 mg/dL (0.2-1.3); Total Protein 5.2 g/dL (6.3-8.2)
[2017-08-10] MEDS ORDERED: PANTOPRAZOLE 40 MG TABLET PO SCH (07:30)
[2017-08-10 08:45] VITALS: PULSE 73; TEMP 98.6
[2017-08-10] MEDS: SODIUM CHLORIDE 0.9% 1,000 ML IV SCH (09:34)
--- NOTE | 2017-08-10 11:52 | P.DS ---
Providers Date of admission: 08/08/17 03:43 Expected date of discharge: 08/10/17 Attending physician: Live Knutson Consults: 08/08/17 09:13 Consult Physician Routine Consulting Provider: Zuleima Webb Consult Reason/Comments: acute renal failure Do you want consulting provider notified?: Yes 08/08/17 09:22 Consult Physician Routine Consulting Provider: Luis Daniel Hurst Consult Reason/Comments: fever, leukocytosis Do you want consulting provider notified?: Yes 08/08/17 10:22 Consult Physician Routine Consulting Provider: Radha Hannah Consult Reason/Comments: hx of seizures Do you want consulting provider notified?: Already Contacted Primary care physician: Live Knutson [facility] Course: 51-year-old male who presented to the emergency room with a chief complaint of generalized weakness, muscle spasms, and nausea and vomiting. The patient states he has been vomiting for the last 3 days and states he was vomiting numerous times per day: 20 times per day. Apparently, the patient had a pain pump inserted in his back last month and he received his first fill on Saturday with Dr. Loya. The patient started having nausea and vomiting and apparently Dr. Louise office called the patient a prescription for Zofran but the patients pharmacy was unable to fill it that day, but stated it would be ready the following day but the patient never went back to pick it up. The patient denies abdominal pain or discomfort. Denies diarrhea or constipation. The patient reports a sore throat and states it feels "raw" from frequenting vomiting. The patient also reports dysuria x 2 days. The patient declines having a fever at home. He was febrile upon admission to the ER at 103.9 degrees Fahrenheit. He was also tachycardic with a rate in the 150s. The patient has a history of chronic back pain secondary to degenerative disc disease and herniated disks. He sees Dr. Loya for his pain medications. The patient states the only prescriptions he receives from Dr. Knutson is his Elavil and Baclofen. The patient also reports daily marijuana use. the patient also has a history of gastroesophageal reflux disease, osteoarthritis, pneumonia , and seizure disorder. He also has a history of anxiety and depression. Patient denies alcohol use. Chest x-ray: subsegmental atelectasis in the right midlung, otherwise negative. CT of the brain: Negative for acute process Laboratory data: WBC 25.2. Hemoglobin 17.1. Platelet count 394. Sodium 144. Potassium 4.0. Chloride 71. Carbon dioxide 38. BUN 44. Creatinine 3.20. calcium 10.3. Phosphorus 6.6. Magnesium 2.0. AST 52. ALT 22. Alkaline phosphatase 134. Ammonia 45. Total creatinine kinase 668. CK-MB 2.9. troponin negative 1 Urinalysis reveals: yellow turbid urine, 2+ proteinuria, trace glucose, 1+ ketonuria, moderate blood, moderate leukocyte esterase, RBC 22. Hyaline casts 55. Toxicology: Positive for opioids, tricyclic antidepressants, and marijuana. Serum alcohol less than 10 Screening for influenza A and B was negative The patient was admitted to the hospital under the care of Dr. Knutson. Consultations were placed to neurology, infectious disease, and nephrology. 08/09/2017 Patient seen and examined at the bedside. Patient awake and alert. Patient underwent EEG which was negative for seizure activity. Creatinine today is 0.69 , down from 2.20 yesterday. BUN is 17, down from 49 yesterday. Blood cultures are positive for gram postive bacilli, likely contamination. Urine culture is negative at the 18 hour sean. WBC today is 10.7, down from 22.7 yesterday. Infectious disease is on consult. Patient remains on Rocephin. Patient states he is feeling better today. Denies shortness of breath. Denies chest pain. States his pain is tolerable at this time. 08/10/2017 Patient is doing well. Labs are resolved. Blood cultures showed diphtheroid species on cultures, which is was likely contaminant. His only complaint is sore throat from vomiting previously. Cepacol is helping with this. He would like to be discharged home. D/C DX Nonoliguric acute kidney injury secondary to intravascular volume depletion secondary to nausea and vomiting SIRS present on admission, etiology unclear, RESOLVED Lactic acidosis, improved with IV hydration Bacteriuria with complaints of dysuria and burning with urination, suspect urinary tract infection, culture negative Gram positive bacteremia, suspect contamination, repeats negative Muscle spasms, secondary to acute renal failure, Chronic back pain secondary to DDD with recent placement of pain pump (1 month ago) and first medication fill 08/05/2017 Opioid dependence, secondary to above Seizure disorder, maintained on Keppra and Trileptal Anxiety, unspecified Depression, unspecified Nicotine dependence, patient is a current cigarette smoker Daily cannabis use Patient Condition at Discharge: Fair Plan - Discharge Summary Discharge Rx Participant: No New Discharge Prescriptions: New Benzocaine/Menthol Lozeng [Cepacol lozenge] 1 each MUCOUS MEM Q4HR PRN #30 lozenge PRN Reason: Sore Throat Continue Ranitidine HCl 150 mg PO BID PRN PRN Reason: REFLUX,HEARTBURN PARoxetine HCL [Paxil] 40 mg PO DAILY Baclofen 10 mg PO BID Gabapentin 800 mg PO Q4H Amitriptyline HCl [Elavil] 25 mg PO TID oxyCODONE-APAP 10-325MG [Percocet 10-325 mg] 1 tab PO TID PRN PRN Reason: Pain levETIRAcetam [Keppra] 500 mg PO BID OXcarbazepine [Trileptal] 600 mg PO DAILY OXcarbazepine [Trileptal] 1,200 mg PO HS Morphine Sulfate ER [Ms Contin] 15 mg PO Q12HR PRN PRN Reason: Pain Discharge Medication List Amitriptyline HCl [Elavil] 25 mg PO TID 05/16/15 [History] Baclofen 10 mg PO BID 05/16/15 [History] Gabapentin 800 mg PO Q4H 05/16/15 [History] PARoxetine HCL [Paxil] 40 mg PO DAILY 05/16/15 [History] Ranitidine HCl 150 mg PO BID PRN 05/16/15 [History] oxyCODONE-APAP 10-325MG [Percocet 10-325 mg] 1 tab PO TID PRN 05/16/15 [History] levETIRAcetam [Keppra] 500 mg PO BID 05/15/16 [History] Morphine Sulfate ER [Ms Contin] 15 mg PO Q12HR PRN 08/08/17 [History] OXcarbazepine [Trileptal] 1,200 mg PO HS 08/08/17 [History] OXcarbazepine [Trileptal] 600 mg PO DAILY 08/08/17 [History] Benzocaine/Menthol Lozeng [Cepacol lozenge] 1 each MUCOUS MEM Q4HR PRN #30 lozenge 08/10/17 [Rx] Follow up Appointment(s)/Referral(s): Live Knutson MD [Primary Care Provider] - 1-2 days Yadira Chan MD [STAFF PHYSICIAN] - 1 Week Discharge Disposition: HOME SELF-CARE
--- NOTE | 2017-08-10 12:33 | PN ---
PROGRESS NOTE Patient is seen for followup for acute kidney injury. His renal function has completely recovered. Serum creatinine is now 0.6 and 0.7 mg/dL. Initial creatinine was 3.2 mg/dL. The patient is maintained on IV fluids. EXAMINATION: Blood pressure is 108/64, heart rate 73 per minute. He is afebrile. Examination of the heart: S1, S2. Examination lungs: Bilateral breath sounds are heard. Abdomen is soft, nontender. Examination lower extremities shows no evidence of edema. [employer] exam is grossly intact. LABS: Sodium 135, potassium 3.6, BUN 13, serum creatinine 0.7, hemoglobin 11.8 g/dL. ASSESSMENT: 1. Acute kidney injury, prerenal, currently resolved. 2. Severe sepsis from urinary tract infection. 3. Hyperphosphatemia associated with acute kidney injury. This has now resolved and phosphate was low, which was replaced yesterday. PLAN: Will sign off. Renal function is currently back to baseline. MMODL / IJN: [id number] /
[2017-08-10 14:13] VITALS: BP 128/65
[2017-08-12 07:13] LABS: Levetiracetam (Keppra) 3.4 ug/mL (3.0-60.0)
== END 2017-08-10 15:50 | disposition home or self-care (01) | DRG 872 ==
LOC: EC 00:34 → 6SEL 03:43 → 5MS5E 11:37
PROVIDERS: ADMIT Family Medicine; ATTEND Family Medicine
DX: A41.9 Sepsis, unspecified organism (principal); E87.4 Mixed disorder of acid-base balance; N17.9 Acute kidney failure, unspecified; F11.20 Opioid dependence, uncomplicated; G40.802 Other epilepsy, not intractable, without status epilepticus; J98.11 Atelectasis; N39.0 Urinary tract infection, site not specified; E86.0 Dehydration; R65.20 Severe sepsis without septic shock; E86.9 Volume depletion, unspecified; M54.9 Dorsalgia, unspecified; G89.29 Other chronic pain; F17.210 Nicotine dependence, cigarettes, uncomplicated; E83.39 Other disorders of phosphorus metabolism; F12.90 Cannabis use, unspecified, uncomplicated; K21.9 Gastro-esophageal reflux disease without esophagitis; M19.90 Unspecified osteoarthritis, unspecified site; F41.9 Anxiety disorder, unspecified; F32.9 Major depressive disorder, single episode, unspecified; T42.8X5A Adverse effect of antiparkinsonism drugs and other central muscle-tone depressants, initial encounter; Y92.230 Patient room in hospital as the place of occurrence of the external cause; M62.838 Other muscle spasm; Z87.01 Personal history of pneumonia (recurrent); Z97.8 Presence of other specified devices; Z79.899 Other long term (current) drug therapy; Z80.1 Family history of malignant neoplasm of trachea, bronchus and lung; Z91.5 Personal history of self-harm; Z80.8 Family history of malignant neoplasm of other organs or systems; Z88.0 Allergy status to penicillin; Z88.8 Allergy status to other drugs, medicaments and biological substances; Z91.040 Latex allergy status
CPT/HCPCS: 36415; 51701; 70450; 71045; 76770; 80053; 80074; 80177; 80183; 80306; 80320; 81001; 82140; 82550; 82553; 83520; 83605; 83690; 83735; 84100; 84484; 85025; 85610; 85730; 87040; 87086; 87502; 93005; 94760; 95819; 96361; 96365; 96372; 96374; 96375; 99285

== ENCOUNTER 2017-09-25 07:51 | Emergency (ER) | payer OTHER ==
[2017-09-25 07:57] VITALS: RESP 18
[2017-09-25] MEDS ORDERED: ONDANSETRON 4 MG/2 ML VIAL IVP STA (08:08)
[2017-09-25] MEDS ORDERED: SODIUM CHLORIDE 0.9% 2,000 ML IV STA (08:08)
--- NOTE | 2017-09-25 08:21 | ED ---
Nausea/Vomiting/Diarrhea HPI - General Chief complaint: Nausea/Vomiting/Diarrhea Stated complaint: Vomiting Time Seen by Provider: 09/25/17 08:07 Source: patient, RN notes reviewed Mode of arrival: wheelchair Limitations: no limitations - History of Present Illness Initial comments: 51-year-old male presents emergency Department chief complaint of nausea vomiting. Patient states her last 2-3 days of constant nausea vomiting. He states this usually happens when he has his pain pump increased. He states he usually happens approximately one week after. Patient states that he was admitted to the hospital last time because of acute renal failure. Patient states he has diffuse abdominal pain and cramping no diarrhea no constipation denies any dysuria or hematuria. Patient denies any chest pain, shortness breath, fever, chills, headache or dizziness. Patient states he has appointment with his primary care physician and pain management today. - Related Data Home Medications Medication Instructions Recorded Confirmed Amitriptyline HCl [Elavil] 25 mg PO BID 05/16/15 09/25/17 Gabapentin 800 mg PO TID 05/16/15 09/25/17 PARoxetine HCL [Paxil] 40 mg PO DAILY 05/16/15 09/25/17 levETIRAcetam [Keppra] 500 mg PO BID 05/15/16 09/25/17 Morphine Sulfate ER [Ms Contin] 15 mg PO QAM 08/08/17 09/25/17 OXcarbazepine [Trileptal] 1,200 mg PO HS 08/08/17 09/25/17 OXcarbazepine [Trileptal] 600 mg PO DAILY 08/08/17 09/25/17 oxyCODONE HCL/ACETAMINOPHEN 1 tab PO HS 09/25/17 09/25/17 [Percocet 7.5-325 mg] Previous Rx's Medication Instructions Recorded Ondansetron Odt [Zofran Odt] 4 mg PO Q8HR PRN #10 tab 09/25/17 Allergies Allergy/AdvReac Type Severity Reaction Status Date / Time coconut oil Allergy Dyspnea, Verified 09/25/17 08:11 SWELLING OF THROAT latex Allergy Rash/Hives Verified 09/25/17 08:11 Penicillins Allergy "TOLD BY Verified 09/25/17 08:11 DR LINDSEY TO TAKE Review of Systems ROS Statement: Those systems with pertinent positive or pertinent negative responses have been documented in the HPI. ROS Other: All systems not noted in ROS Statement are negative. Past Medical History Past Medical History: GERD/Reflux, Osteoarthritis (OA), Pneumonia, Seizure Disorder Additional Past Medical History / Comment(s): Chronic back pain (has pain pump) , herniated discs, DJD, numbness/tingling bilateral feet, carpal tunnel syndrome bilateral wrists, last seizure 2013, sinus problems, chronic cough, bronchitis, occasional double vision d/t L "lazy eye", past rib fractures with dislocations, hemorrhoids. History of Any Multi-Drug Resistant Organisms: None Reported Past Surgical History: Back Surgery, Orthopedic Surgery Additional Past Surgical History / Comment(s): Colonoscopy/benign polypectomy, pain pump in back, R knee arthroscopy, R foot with metal sleeve. Past Anesthesia/Blood Transfusion Reactions: No Reported Reaction Past Psychological History: Anxiety, Depression Smoking Status: Current every day smoker Past Alcohol Use History: None Reported Past Drug Use History: Marijuana - Past Family History Father Family Medical History: Cancer Additional Family Medical History / Comment(s): Father had liver and lung cancer. Mother Family Medical History: No Reported History General Exam Limitations: no limitations General appearance: alert, in no apparent distress Head exam: Present: atraumatic, normocephalic, normal inspection Eye exam: Present: normal appearance, PERRL, EOMI. Absent: scleral icterus, conjunctival injection, periorbital swelling ENT exam: Present: normal exam, normal oropharynx, mucous membranes moist Neck exam: Present: normal inspection. Absent: tenderness, meningismus, lymphadenopathy Respiratory exam: Present: normal lung sounds bilaterally. Absent: respiratory distress, wheezes, rales, rhonchi, stridor Cardiovascular Exam: Present: regular rate, normal rhythm, normal heart sounds. Absent: systolic murmur, diastolic murmur, rubs, gallop, clicks GI/Abdominal exam: Present: soft, tenderness (Mild diffuse), normal bowel sounds. Absent: distended, guarding, rebound, rigid Back exam: Absent: CVA tenderness (R), CVA tenderness (L) Skin exam: Present: warm, dry, intact, normal color. Absent: rash Course Vital Signs 09/25/17 07:54 Temperature 97.9 F Pulse Rate 85 Respiratory 18 Rate Blood Pressure 129/80 O2 Sat by Pulse 95 Oximetry - Reevaluation(s) Reevaluation #1: 09/25/17 10:22 Patient was reevaluated time states he feels much improved after IV fluids and antiemetics. Medical Decision Making - Medical Decision Making 51-year-old male presents from for nausea vomiting secondary to increase in his pain pump. Patient was hydrated with 2 L of fluid given antiemetics. Patient lab work was reviewed no major abnormality's. Patient will be discharged with Zofran he'll be discharged to go to his appointment 12 with pain management and primary care physician. - Lab Data Result diagrams: 09/25/17 08:29 09/25/17 08:29 Lab Results 09/25/17 09/25/17 Range/Units 08:29 08:29 WBC 10.1 (3.8-10.6) k/uL RBC 5.33 (4.30-5.90) m/uL Hgb 15.8 D (13.0-17.5) gm/dL Hct 45.9 (39.0-53.0) % MCV 86.1 (80.0-100.0) fL MCH 29.7 (25.0-35.0) pg MCHC 34.5 (31.0-37.0) g/dL RDW 13.2 (11.5-15.5) % Plt Count 345 (150-450) k/uL Neutrophils % 78 % Lymphocytes % 14 % Monocytes % 5 % Eosinophils % 1 % Basophils % 0 % Neutrophils # 7.9 H (1.3-7.7) k/uL Lymphocytes # 1.4 (1.0-4.8) k/uL Monocytes # 0.5 (0-1.0) k/uL Eosinophils # 0.1 (0-0.7) k/uL Basophils # 0.0 (0-0.2) k/uL Sodium 143 (137-145) mmol/L Potassium 3.4 L (3.5-5.1) mmol/L Chloride 92 L (98-107) mmol/L Carbon Dioxide 31 H (22-30) mmol/L Anion Gap 20 mmol/L BUN 18 (9-20) mg/dL Creatinine 0.67 (0.66-1.25) mg/dL Est GFR (CKD-EPI)AfAm >90 (>60 ml/min/1.73 sqM) Est GFR (CKD-EPI)NonAf >90 (>60 ml/min/1.73 sqM) Glucose 127 H (74-99) mg/dL Calcium 10.0 (8.4-10.2) mg/dL Total Bilirubin 0.4 (0.2-1.3) mg/dL AST 28 (17-59) U/L ALT 28 (21-72) U/L Alkaline Phosphatase 104 (38-126) U/L Total Protein 8.0 (6.3-8.2) g/dL Albumin 5.0 (3.5-5.0) g/dL Amylase 52 (30-110) U/L Lipase 75 (23-300) U/L Disposition Clinical Impression: Nausea & vomiting Disposition: HOME SELF-CARE Condition: Stable Instructions: Acute Nausea and Vomiting (ED) Additional Instructions: Please return to the Emergency Department if symptoms worsen or any other concerns. Prescriptions: Ondansetron Odt [Zofran Odt] 4 mg PO Q8HR PRN #10 tab PRN Reason: Nausea Is patient prescribed a controlled substance at d/c from ED?: No Referrals: Live Knutson MD [Primary Care Provider] - 1-2 days Time of Disposition: 10:24
[2017-09-25 08:44] LABS: Basophils % (A) 0 %; Eosinophils # (A) 0.1 k/uL (0-0.7); Eosinophils % (A) 1 %; HCT 45.9 % (39.0-53.0); Lymphocytes # (A) 1.4 k/uL (1.0-4.8); Lymphocytes % (A) 14 %; MCH 29.7 pg (25.0-35.0); MCHC 34.5 g/dL (31.0-37.0); MCV 86.1 fL (80.0-100.0); Monocytes # (A) 0.5 k/uL (0-1.0); Monocytes % (A) 5 %; Neutrophils # (A) 7.9 k/uL (1.3-7.7); Neutrophils % (A) 78 %; Platelet Count 345 k/uL (150-450); RBC 5.33 m/uL (4.30-5.90); RDW 13.2 % (11.5-15.5); WBC 10.1 k/uL (3.8-10.6)
[2017-09-25 08:47] LABS: HGB 15.8 gm/dL (13.0-17.5)
[2017-09-25 08:54] LABS: ALT 28 U/L (21-72); AST 28 U/L (17-59); Alkaline Phosphatase 104 U/L (38-126); Amylase 52 U/L (30-110); Anion Gap 20 mmol/L; Blood Urea Nitrogen 18 mg/dL (9-20); Carbon Dioxide 31 mmol/L (22-30); Chloride 92 mmol/L (98-107); Glucose 127 mg/dL (74-99); Lipase 75 U/L (23-300); Potassium 3.4 mmol/L (3.5-5.1); Sodium 143 mmol/L (137-145); Total Bilirubin 0.4 mg/dL (0.2-1.3)
[2017-09-25 10:35] VITALS: BP 121/68; PULSE 70; TEMP 97.8
== END 2017-09-25 10:35 | disposition home or self-care (01) ==
LOC: EC 07:51
DX: R11.2 Nausea with vomiting, unspecified (principal); R10.9 Unspecified abdominal pain; Z79.891 Long term (current) use of opiate analgesic; Z79.899 Other long term (current) drug therapy; Z91.018 Allergy to other foods; Z91.040 Latex allergy status; Z88.0 Allergy status to penicillin; M19.90 Unspecified osteoarthritis, unspecified site; G40.909 Epilepsy, unspecified, not intractable, without status epilepticus; F32.9 Major depressive disorder, single episode, unspecified; F41.9 Anxiety disorder, unspecified; F17.200 Nicotine dependence, unspecified, uncomplicated
CPT/HCPCS: 36415; 80053; 82150; 83690; 85025; 99284; 96374; 96361 ×2; J2405

== ENCOUNTER → 2017-12-16 | Outpatient (CLI) | payer OTHER | END | disposition home or self-care (01) | LOC: RADMRIMAIN 11:08 | PROVIDERS: ATTEND Psychiatry & Neurology Pain Medicine | DX: Z53.9 Procedure and treatment not carried out, unspecified reason (principal) ==

== ENCOUNTER → 2017-12-23 | Outpatient (CLI) | payer OTHER ==
--- NOTE | 2017-12-23 17:47 | MR ---
MR thoracic spine without contrast HISTORY: Thoracic spine pain Multiplanar multisequence imaging through the thoracic spine correlated to prior thoracic spine MRI Exam is similar. There is multilevel Schmorl's node formation, endplate discogenic marrow signal muniz ge, spondylosis. No significant foraminal encroachment or significant spinal stenosis. Multilevel fac et arthropathy is noted especially at the lower lumbar spine. Mild multilevel posterior disc bulges c ause minimal anterior mass effect on the thecal sac similar to prior exam. Thoracic cord signal is ma intained. Mild spinal curvature again noted. IMPRESSION: Stable exam, degenerative disc disease.
== END | disposition home or self-care (01) ==
LOC: RADMRIMAIN 15:55
PROVIDERS: ATTEND Psychiatry & Neurology Pain Medicine
DX: M51.34 Other intervertebral disc degeneration, thoracic region (principal)
CPT/HCPCS: 72146

== ENCOUNTER → 2018-09-18 | Outpatient (CLI) | payer OTHER ==
[2018-09-18 17:46] LABS: Basophils # (A) 0.1 k/uL (0-0.2); Basophils % (A) 1 %; Eosinophils # (A) 0.3 k/uL (0-0.7); Eosinophils % (A) 6 %; HCT 40.9 % (39.0-53.0); HGB 13.1 gm/dL (13.0-17.5); Lymphocytes # (A) 1.8 k/uL (1.0-4.8); Lymphocytes % (A) 36 %; MCH 29.2 pg (25.0-35.0); MCHC 32.1 g/dL (31.0-37.0); MCV 90.9 fL (80.0-100.0); Mean Platelet Volume 6.2; Monocytes # (A) 0.3 k/uL (0-1.0); Monocytes % (A) 5 %; Neutrophils # (A) 2.5 k/uL (1.3-7.7); Neutrophils % (A) 50 %; Platelet Count 226 k/uL (150-450); RBC 4.49 m/uL (4.30-5.90); RDW 13.3 % (11.5-15.5); WBC 5.1 k/uL (3.8-10.6)
[2018-09-18 23:37] LABS: Albumin 4.3 g/dL (3.80-4.90); Albumin/Globulin Ratio 2.15 (1.60-3.17); Anion Gap 7.2 mmol/L (4.00-12.00); Calcium 9.3 mg/dL (8.7-10.3); Carbon Dioxide 29.8 mmol/L (21.6-31.8); LDL Cholesterol,Calculated 133.4 mg/dL (0.0-131.0); Potassium 4.4 mmol/L (3.5-5.5); Total Bilirubin 0.3 mg/dL (0.3-1.2); Total Protein 6.3 g/dL (6.2-8.2); VLDL Calculation 24.6 mg/dL (5.00-40.00)
== END | disposition home or self-care (01) ==
LOC: LABWHC1 16:57
PROVIDERS: ATTEND Physician Assistant
DX: Z00.00 Encounter for general adult medical examination without abnormal findings (principal); M62.81 Muscle weakness (generalized); F33.41 Major depressive disorder, recurrent, in partial remission; J44.9 Chronic obstructive pulmonary disease, unspecified; R06.02 Shortness of breath; Z79.899 Other long term (current) drug therapy
CPT/HCPCS: 36415; 80053; 80061; 84153; 84439; 84443; 85025

== ENCOUNTER 2020-08-30 09:09 | Day surgery (SDC) | payer OTHER ==
[2020-08-26 09:06] VITALS: BMI 37.9
[~2020-08-30 09:09] MED LIST: LACTATED RINGERS 1,000 ML IV SCH; LIDOCAINE 1% (10MG/ML) FOR IV START INTRADERMA PRN; PROPOFOL 10 MG/ML 20 ML VIAL IV ONE
[2020-08-30] MEDS ORDERED: LACTATED RINGERS 1,000 ML IV SCH (09:53)
[2020-08-30] MEDS ORDERED: LIDOCAINE 1% (10MG/ML) FOR IV START INTRADERMA PRN (09:53)
[2020-08-30 10:02] VITALS: RESP 20; TEMP 98.3
[2020-08-30] MEDS ORDERED: PROPOFOL 10 MG/ML 20 ML VIAL IV ONE (10:20)
--- NOTE | 2020-08-30 10:23 | P.GSHP ---
History of Present Illness H&P Date: 08/30/20 Chief Complaint: Colon cancer screening 54-year-old male here today for colonoscopy. Last colonoscopy 5 years ago. Patient had adenomatous polyps at that time. No bowel complaints. No family history of colon cancer. Past Medical History Past Medical History: COPD, GERD/Reflux, Osteoarthritis (OA), Pneumonia, Seizure Disorder Additional Past Medical History / Comment(s): Chronic back pain (has pain pump), herniated discs, DJD, numbness/tingling bilateral feet, carpal tunnel syndrome bilateral wrists, last seizure 07/2019, occasional double vision d/t L "lazy eye", hx of colon polyps History of Any Multi-Drug Resistant Organisms: None Reported Past Surgical History: Back Surgery, Orthopedic Surgery Additional Past Surgical History / Comment(s): Colonoscopy, pain pump in back, R knee arthroscopy, R foot with metal sleeve. Past Anesthesia/Blood Transfusion Reactions: No Reported Reaction Smoking Status: Current every day smoker - Past Family History Father Family Medical History: Cancer Additional Family Medical History / Comment(s): Father had liver and lung cancer. Mother Family Medical History: No Reported History Medications and Allergies Home Medications Medication Instructions Recorded Confirmed Type Gabapentin 800 mg PO TID 05/16/15 08/30/20 History PARoxetine HCL [Paxil] 40 mg PO DAILY 05/16/15 08/30/20 History levETIRAcetam [Keppra] 500 mg PO BID 05/15/16 08/30/20 History Meloxicam [Mobic] 15 mg PO DAILY 04/22/20 08/30/20 History Pantoprazole [Protonix] 40 mg PO DAILY 04/22/20 08/30/20 History Glycopyrrolate/Formoterol Fum 2 puff INHALATION BID 08/26/20 08/30/20 History [Bevespi Aerosphere Inhaler] Allergies Allergy/AdvReac Type Severity Reaction Status Date / Time coconut oil Allergy Dyspnea, Verified 08/30/20 09:54 SWELLING OF THROAT latex Allergy Rash/Hives Verified 08/30/20 09:54 Penicillins Allergy Unknown Verified 08/30/20 09:54 Surgical - Exam Vital Signs Temp Pulse Resp BP Pulse Ox 98.3 F 81 20 143/81 94 L 08/30/20 10:01 08/30/20 10:01 08/30/20 10:01 08/30/20 10:01 08/30/20 10:01 Physical exam: General: Well-developed, well-nourished HEENT: Normocephalic, sclerae nonicteric Abdomen: Nontender, nondistended Extremities: No edema Neuro: Alert and oriented Assessment and Plan (1) Colon cancer screening Narrative/Plan: Will proceed with colonoscopy Current Visit: No Status: Acute Code(s): Z12.11 - ENCOUNTER FOR SCREENING FOR MALIGNANT NEOPLASM OF COLON SNOMED Code(s): 188343330
--- NOTE | 2020-08-30 10:40 | P.PCN ---
Date of Procedure: 08/30/20 Procedure(s) Performed: PREOPERATIVE DIAGNOSIS: Colon cancer screening, history of polyps POSTOPERATIVE DIAGNOSIS: Ascending colon, transverse colon, rectal polyps PROCEDURE: Colonoscopy with snare polypectomy ANESTHESIA: MAC SURGEON: Jimmie Lopez M.D. SPECIMENS: Polyps ENDOSCOPIC PROCEDURE: The patient was placed on the endoscopy table in the left decubitus position. The Olympus colonoscope was inserted into the anus and passed under direct visualization to the base of the cecum. The appendiceal orifice was visualized. From that point the scope was slowly withdrawn inspecting all surfaces carefully. There were no neoplastic inflammatory or polypoid lesions throughout the cecum. In the ascending colon a small polyp was seen and removed using the snare with cautery technique. In the transverse colon another small polyp was removed in a similar fashion. Descending and sigmoid colon appeared normal. In the rectum a small polyp was seen and removed using the snare with cautery technique. There was no significant diverticulosis seen. Digital rectal examination was normal. The patient was taken to the recovery room in stable condition per anesthesia guidelines. RECOMMENDATIONS: Await biopsy results. Follow-up colonoscopy 5 years.
[2020-08-30 11:15] VITALS: BP 130/75; PULSE 62
== END 2020-08-30 11:15 | disposition home or self-care (01) ==
LOC: ORWHC2ENDO 09:09
PROVIDERS: ATTEND Surgery
DX: Z12.11 Encounter for screening for malignant neoplasm of colon (principal); D12.2 Benign neoplasm of ascending colon; K63.5 Polyp of colon; K21.9 Gastro-esophageal reflux disease without esophagitis; J44.9 Chronic obstructive pulmonary disease, unspecified; M19.90 Unspecified osteoarthritis, unspecified site; F17.210 Nicotine dependence, cigarettes, uncomplicated; Z79.1 Long term (current) use of non-steroidal anti-inflammatories (NSAID); Z79.899 Other long term (current) drug therapy; Z80.1 Family history of malignant neoplasm of trachea, bronchus and lung; Z86.010 Personal history of colon polyps; Z88.0 Allergy status to penicillin; Z91.018 Allergy to other foods; Z91.040 Latex allergy status; Z80.0 Family history of malignant neoplasm of digestive organs
CPT/HCPCS: 45385; J2704; 88305